=== PATIENT | male | born 1940 | race Caucasian/White ===

== ENCOUNTER → 2017-07-05 13:59 | Outpatient (CLI) | payer MEDICARE, OTHER, SELFPAY ==
[2017-07-05 15:34] LABS: PSA,Total - Annual Screen 4.06 ng/mL (0.00-4.00)
== END ==
PROVIDERS: Family Provider Family Medicine; PCP Family Medicine; Visit Provider Urology
DX: Z12.5 Encounter for screening for malignant neoplasm of prostate (principal)
CPT/HCPCS: 36415; 84153; G0103

== ENCOUNTER → 2017-12-27 11:58 | Outpatient (CLI) | payer MEDICARE, OTHER, SELFPAY ==
[2017-12-27 12:59] LABS: PSA,Total- Diagnostic 4.34 ng/mL (0.0-4.0)
== END ==
PROVIDERS: Family Provider Family Medicine; PCP Family Medicine; Referring Provider Urology; Visit Provider Urology
DX: R97.20 Elevated prostate specific antigen [PSA] (principal)
CPT/HCPCS: 36415; 84153

== ENCOUNTER 2018-01-28 08:06 | Day surgery (SDC) | payer MEDICARE, OTHER, SELFPAY ==
[2018-01-21 10:42] VITALS: BP 108/70; PULSE 76; RESP 16; TEMP 36.5; O2SAT 95; BMI 25.2
--- NOTE | 2018-01-21 10:47 | SDCEKG_ITS ---
Test Reason : Blood Pressure : / mmHG Vent. Rate : 070 BPM Atrial Rate : 070 BPM P-R Int : 000 ms QRS Dur : 088 ms QT Int : 378 ms P-R-T Axes : 000 000 015 degrees QTc Int : 408 ms Atrial fibrillation with premature ventricular or aberrantly conducted complexes Abnormal ECG Confirmed by SARAH SMYTH ([id number]), clinical editor KAYLIE MCCULLOUGH ([id number]) on 01/24/2018 2:15:43 PM Referred By: Maikel Marcum Confirmed By:SARAH SMYTH
[2018-01-21 11:51] LABS: Hematocrit 40.3 % (40-54); Mean Corp Hgb Conc 32.3 g/gl (32-36); Mean Corpuscular Hgb 28.6 pg (27.0-32.0); Mean Corpuscular Volume 88.8 fL (80-94); Mean Platelet Vol. 10.4 fl (6.2-12.0); Platelet Count 148 K/mm3 (150-450); RBC Distribution Width CV 13.4 % (11.6-14.6); Red Blood Count 4.54 M/mm3 (4.6-6.2); White Blood Count 8.4 K/mm3 (4.4-11.0)
[2018-01-21 11:53] LABS: Scan Indicated on CBC? Y/N NO
[2018-01-21 12:19] LABS: Anion Gap 7 (5-15); BUN 17 mg/dL (7-18); BUN/Creat Ratio 16.2 RATIO (10-20); Chloride 101 mmol/L (98-107); Creatinine, Serum 1.05 mg/dL (0.70-1.30); EST Glomerular Filtration Rate 72 mL/min (>60); Est Glom Filt Rate - Afr Amer 88 mL/min (>60); Estimated Creatinine Clearance 61.75 ml/min; Glucose 100 mg/dL (74-106); Potassium 4.4 mmol/L (3.5-5.1); Sodium Level 136 mmol/L (136-145)
[2018-01-21 12:29] LABS: Hemoglobin A1c 6.8 % (4.2-6.3)
[2018-01-28] VITALS (11 sets, daily range): BP systolic 103–136; BP diastolic 56–99; PULSE 66–75; RESP 16–18; TEMP 36.3–36.9; O2SAT 95–100; BMI 25.2
--- NOTE | 2018-01-28 | PROS_PTH ---
PATIENT: HUA ADAN [place] [facility] [id number] AGE/SX: 77/M ROOM: RE01/28/[address]: Dr. Maikel Marcum MD : [id number] BED: DIS: 01/30/2018 SPEC #: [id number] RECD: 01/28/18 14:40 STATUS: BIGG RETeo #: [id number] MANA: 01/28/18 00:[address]: Maikel Marcum DEPT: SURGICAL PATHOLOGY RECD BY: Stevie Mora ENTERED: 01/28/18 14:40 SP TYPE: TURP OTHR DR: Dr. Luis Enrique Reynolds MD Tissues: Prostate, NOS Procedures: Surgery Specimen Level IV HEADER OPERATION: Cysto, TUR, prostate, Olymp[employer] PRE-OP DIAGNOSIS: Benign prostatic hypertrophy TISSUE SUBMITTED: Prostate tissue MICROSCOPIC DIAGNOSIS Prostate tissue, TUR: Benign prostatic hyperplasia, glandular and stromal type. Focal chronic inflammation and granulomatous inflammation. SJ:juanita 01/31/18 MICROSCOPIC DESCRIPTION Slides are reviewed. GROSS DESCRIPTION Received is one container labeled with the patient's name and designated prostate tissue. The specimen consists of multiple irregular fragments of pink-singh, rubbery, soft tissue that in aggregate weigh 22 gm and measure in aggregate 6 x 7 x 3 cm. Community Relations Rep tissue is submitted in 12 cassettes. / MARIE:juanita 01/28/18 TC:5 CPT: 65434
[2018-01-28 09:26] LABS: Prothrombin Time Fingerstick 12.7 SEC (11.9-14.4)
[2018-01-28 10:06] LABS: Bedside Glucose 124 mg/dL (70-110)
[2018-01-28] MEDS: Cefazolin 2 GM in 0.9% Normal Saline 100 ML IV (10:25)
--- NOTE | 2018-01-28 10:33 | DCINST_ITS ---
Discharge Diet: Light diet - advance as tolerated Discharge Activity: Return to Normal Activity Call your doctor if your incision/area has: Continuous Slow Oozing, Sudden Increased Bleeding, Increased Pain/ Swelling, Increased Redness, Foul Smelling Discharge, Swelling at the incision site Instructions: Transurethral Resection of the Prostate (TURP): Home Recovery Allergies/Adverse Reactions: Allergies codeine Allergy (Verified 01/21/18 10:10) BLISTERS Medications to take at Discharge Dutasteride [Avodart] 0.5 mg PO DAILY 01/21/18 Finasteride [Proscar] 5 mg PO DAILY 01/21/18 Glipizide [Glucotrol Xl] 10 mg PO DAILY 01/21/18 Hydrochlorothiazide [Hctz] 25 mg PO DAILY 01/21/18 Lisinopril [Zestril] 5 mg PO DAILY 01/21/18 Metformin HCl [Glucophage] 750 mg PO BIDCM 01/21/18 Simvastatin [Zocor] 40 mg PO QHS 01/21/18 Sitagliptin Phosphate [Januvia] 100 mg PO DAILY 01/21/18 Tamsulosin HCl [Flomax] 0.4 mg PO BID 01/21/18 Primary Care Physician: Luis Enrique Reynolds MD [Primary Care Provider] - Test Results: Test results from this visit will be discussed in further detail at your follow- up appointment, if applicable. Please Follow Up With: Maikel Marcum MD When: in 2 weeks, please call to make an appointment.
--- NOTE | 2018-01-28 11:40 | PCM.OPRPT ---
Report of Operation Date of Procedure: 01/28/18 Pre-Operative Diagnosis: BPH with obstruction Post-Operative Diagnosis: Same Surgery/Procedure Performed:: Transurethral resection of the prostate Description of Surgical Findings:: 77-year-old male who has an enlarged prostate and significant urinary symptoms presents today to the hospital for transurethral resection of the prostate. Patient was taken back to the operating room after smooth induction of general anesthesia he was placed supine on the table and then in dorsal lithotomy position, the penis and testicles are prepped and draped in the usual sterile fashion. Went into the urethra with a 26 Surinamese continuous flow resectoscope using the [employer] resectoscope system when I got inside the prostate had a large bilateral hypertrophy no real median lobe somewhat of a high riding bladder neck and no median lobe. I then started resection in the right lobe of the prostate worked my way back to the room and sphincter, and then started the resection of the left lobe the prostate worked my way back to room and sphincter I then resected all the tissue down to the verumontanum Ellik out all the chips we did a flow test had a nice wide open flow looked back in with a 24 Surinamese noncontinuous flow resectoscope and the sphincter was intact. Then did some very careful resection of the apical tissue and then another flow test had a nice wide open flow all the chips were removed obtained good hemostasis put a catheter and continuous bladder irrigation and the patient anesthetic was reversed taken back to PACU in good condition. Inside the bladder after resection also check a light right and left ureteral orifice which are wide open. Type of Anesthesia:: General Drains: [address] - Admit VTE Documentation VTE Present on Admission: No VTE Mechan Device Prophylaxis: SCD's
--- NOTE | 2018-01-28 11:43 | OP.PCM_ITS ---
Report of Operation Date of Procedure: 01/28/18 Pre-Operative Diagnosis: BPH with obstruction Post-Operative Diagnosis: Same Surgery/Procedure Performed:: Transurethral resection of the prostate Description of Surgical Findings:: 77-year-old male who has an enlarged prostate and significant urinary symptoms presents today to the hospital for transurethral resection of the prostate. Patient was taken back to the operating room after smooth induction of general anesthesia he was placed supine on the table and then in dorsal lithotomy position, the penis and testicles are prepped and draped in the usual sterile fashion. Went into the urethra with a 26 Slovak continuous flow resectoscope using the [employer] resectoscope system when I got inside the prostate had a large bilateral hypertrophy no real median lobe somewhat of a high riding bladder neck and no median lobe. I then started resection in the right lobe of the prostate worked my way back to the room and sphincter, and then started the resection of the left lobe the prostate worked my way back to room and sphincter I then resected all the tissue down to the verumontanum Ellik out all the chips we did a flow test had a nice wide open flow looked back in with a 24 Slovak nonc ontinuous flow resectoscope and the sphincter was intact. Then did some very careful resection of the apical tissue and then another flow test had a nice wide open flow all the chips were removed obtained good hemostasis put a catheter and continuous bladder irrigation and the patient anesthetic was reversed taken back to PACU in good condition. Inside the bladder after resection also check a light right and left ureteral orifice which are wide open. Type of Anesthesia:: General Drains: [address] - Admit VTE Documentation VTE Present on Admission: No VTE Mechan Device Prophylaxis: SCD's
[2018-01-28 12:21] LABS: Bedside Glucose 100 mg/dL (70-110)
[2018-01-28] MEDS: 0.9% Normal Saline 1,000 ML 75 ML IV ×2 (12:41→23:51)
[2018-01-28] MEDS: HYDROcodone Bitartrate/Apap 5/325 Tablet PO ×2 (13:48→22:02)
[2018-01-28] MEDS: Ibuprofen 600 MG Tablet PO (15:30)
[2018-01-28] MEDS: Tamsulosin HCl 0.4 MG Capsule PO (16:02)
[2018-01-28] MEDS: Acetaminophen 325 MG Tablet PO (22:01)
[2018-01-28] MEDS: Atorvastatin Calcium 20 MG Tablet PO (22:02)
[2018-01-28] MEDS: Ciprofloxacin 500 MG Tablet PO (22:02)
[2018-01-28] MEDS: Docusate Sodium 100 MG Capsule PO (22:02)
[2018-01-29] MEDS: Ibuprofen 600 MG Tablet PO ×3 (02:43→17:01)
[2018-01-29 03:20] VITALS: BP 104/65; PULSE 114; RESP 16; TEMP 36.8; O2SAT 97
[2018-01-29] MEDS: HYDROcodone Bitartrate/Apap 5/325 Tablet PO ×3 (06:28→23:07)
[2018-01-29] MEDS: Acetaminophen 325 MG Tablet PO (06:29)
[2018-01-29 07:30] VITALS: BP 143/62; PULSE 74; RESP 18; TEMP 36.1; O2SAT 100
[2018-01-29] MEDS: Tamsulosin HCl 0.4 MG Capsule PO ×2 (08:15→17:00)
[2018-01-29] MEDS: glipiZIDE XL 5 MG Tablet 10 MG PO (08:16)
[2018-01-29] MEDS: hydroCHLOROthiazide 25 MG Tablet PO (08:17)
[2018-01-29] MEDS: Finasteride 5 MG Tablet PO (08:17)
[2018-01-29] MEDS: Pantoprazole Sodium 40 MG Tablet PO (08:17)
[2018-01-29] MEDS: Docusate Sodium 100 MG Capsule PO ×2 (08:17→23:03)
[2018-01-29] MEDS: Ciprofloxacin 500 MG Tablet PO ×2 (08:17→23:03)
[2018-01-29] MEDS: LINAGLIPTIN 5 MG TABLET PO (08:18)
[2018-01-29] MEDS: Lisinopril 5 MG Tablet PO (08:18)
[2018-01-29] MEDS: 0.9% Normal Saline 1,000 ML 75 ML IV (11:44)
--- NOTE | 2018-01-29 11:44 | NURSING ---
LATE ENTRY - 1125 - PT ABLE TO VOID AFTER ALBERTS DC'D X3 - SMALL AMOUNTS 50ML/75ML/50ML - VERY DARK RED WITH NO CLOTS NOTED. PT C/O ALOT OF PAIN/BURNING WITH URINATION - DR SPRINGER NOTIFIED. ORDER TO INSERT 18FR ALBERTS & FLUSH. ALBERTS INSERTED & FLUSHED WITH 50ML NS. PT TOLERATED WELL.
[2018-01-29 12:50] VITALS: BP 119/60; PULSE 79; RESP 18; TEMP 36.4; O2SAT 99
--- NOTE | 2018-01-29 13:02 | CASEMGMT ---
Social Work Telephone call from nursing staff reporting that patient is anxious about discharge to home with spouse today. Reviewed patient chart. Met with patient in room. Patient presenting as anxious as demonstrated by fidgeting with hands and struggle to stay focused on this social media analyst. This social media analyst taking chair and sitting down face to face with patient. This social media analyst exploring patient concerns about returning home. Patient reporting to have limited support and that patient spouse needs help and is unable to manage things on own. Patient concerned about being able to meet patient spouse needs as well as patient needs after discharge. This social media analyst inquiring into what needs patient currently is concerned about. Patient reporting to be concerned about blood that is in catheter. Nursing reporting that blood in catheter is normal after having a TURP procedure completed. This social media analyst normalizing this symptom for patient. Patient voicing understanding and appeared to be surprised that it is normal to have bleeding after a TURP. This social media analyst confirming that patient is able to contact Dr. Marcum's office with any concerns after discharge and that staff with educate patient on how to manage the catheter within the community. Patient also aware that patient will have a follow up appointment with Dr. Marcum in 10 days with hopes to be able to have catheter removed. Patient reporting to be struggling with being out of control and to be unsure about how the healing process will progress. Nursing staff educating to patient how the healing process will look and normal signs and healing process. Patient becoming more confident during conversation and unsure about this social media analyst leaving the room. This social media analyst reinforcing with patient that even though this seems hard patient is showing the ability to be able to work through the healing process. Patient friend then calling patient on phone. This social media analyst leaving room to allow patient to speak with friend. Nursing to let this social media analyst know if there are any further concerns. Support given. Patient plans to return home with spouse on this day and appears to be less anxious as seen through laughing with this social media analyst and able to talk about future/current plans. Nasreen Iverson, COMPUTER TECH, PRODUCTION CONTROLLER
--- NOTE | 2018-01-29 13:27 | CASEMGMT ---
Social Work Nursing reporting that patient is now more anxious again. Nursing also reporting that discharge has been canceled for today due to patient having clotting. Went back to speak with patient again in room. Patient presenting as anxious and reporting what would have happened if this happened at home! Patient pointing to clotting in catheter. This medical social consultant providing active listening and support. Patient aware that discharge has been held at this time. Patient reporting concerns of being able to care for spouse in the home. Patient reporting that patient spouse does have PASSPORT services and has aides through [facility]. Patient reporting that patient spouse is not able to think clearly. This medical social consultant and nurse (who was in room during conversation) observing that maybe patient and patient spouse need more support within the community or possibly should look into transitioning to an assisted living. Patient is unsure about this but open to meeting with a medical social consultant in the community after discharge from hospital. This medical social consultant also broaching topic of having a nurse set up to home into the home after discharge. Patient is agreeable to this and requesting for home health care to be set up through [facility] Patient pleased to be staying another night and aware of possible discharge tomorrow pending medical status. Support given. Telephone call to [facility] on-call nurseRenu. This medical social consultant making referral for skilled nurse and a medical social consultant. Orders placed on patient chart. Dr. Marcum to come in tomorrow and sign orders for home health care. Green sheet placed on patient chart in the event of a weekend discharge with instructions on faxing orders to home health care. Social work to continue to follow as needed. Nasreen Iverson, PICK REMOVER, EMERGING SOLUTIONS EXECUTIVE
--- NOTE | 2018-01-29 13:40 | NURSING ---
PT C/O PAIN @ CATHETER INSERTION SITE, CATHETER NOT FLOWING, FLUSHED WITH 50CC NS - MULTIPLE SMALL CLOTS REMOVED & PT VOICED RELIEF. DR SPRINGER NOTIFIED OF SAME. NEW ORDERS RECEIVED.
--- NOTE | 2018-01-29 17:06 | PCA ---
rn in with pt
[2018-01-29 18:49] VITALS: BP 108/56; PULSE 74; RESP 18; TEMP 36.9; O2SAT 99
[2018-01-29 20:02] VITALS: BP 101/53; PULSE 66; RESP 18; TEMP 37; O2SAT 98
[2018-01-29] MEDS: Atorvastatin Calcium 20 MG Tablet PO (23:03)
[2018-01-30 02:31] VITALS: BP 139/72; PULSE 77; RESP 16; TEMP 36.4; O2SAT 97
[2018-01-30] MEDS: HYDROcodone Bitartrate/Apap 5/325 Tablet PO (07:08)
--- NOTE | 2018-01-30 09:19 | PCM.PN.BLA ---
Progress Note Postop day #2 status post TURP, Villarreal catheter was removed yesterday was not able to urinate normally so Villarreal catheter replaced flush the catheter this morning just a few clots were removed to clear, catheter will be removed today and if he is able to urinate with good control and good volumes he can go home without a catheter. He is instructed not to take his Coumadin to I see him in the office.
[2018-01-30] MEDS: Finasteride 5 MG Tablet PO (09:24)
[2018-01-30] MEDS: Pantoprazole Sodium 40 MG Tablet PO (09:24)
[2018-01-30] MEDS: Ibuprofen 600 MG Tablet PO (09:24)
[2018-01-30] MEDS: glipiZIDE XL 5 MG Tablet 10 MG PO (09:25)
[2018-01-30] MEDS: hydroCHLOROthiazide 25 MG Tablet PO (09:25)
[2018-01-30] MEDS: Lisinopril 5 MG Tablet PO (09:26)
[2018-01-30] MEDS: Docusate Sodium 100 MG Capsule PO (09:26)
[2018-01-30] MEDS: Ciprofloxacin 500 MG Tablet PO (09:26)
[2018-01-30] MEDS: LINAGLIPTIN 5 MG TABLET PO (09:26)
[2018-01-30] MEDS: Tamsulosin HCl 0.4 MG Capsule PO (09:26)
[2018-01-30 09:32] VITALS: BP 105/61; PULSE 65; RESP 18; TEMP 36.6; O2SAT 98
== END 2018-01-30 13:06 | disposition home or self-care (01) ==
LOC: SDC 08:07 → AC 08:07 → MS3 08:27
PROVIDERS: Anesthesiology; Family Provider Family Medicine; PCP Family Medicine; Referring Provider Urology; Visit Provider Urology
PROC: (CPT 52601; principal; 2018-01-28 09:50)
DX: N40.1 Benign prostatic hyperplasia with lower urinary tract symptoms (principal); N41.1 Chronic prostatitis; N13.8 Other obstructive and reflux uropathy; R97.20 Elevated prostate specific antigen [PSA]; R35.1 Nocturia; R35.0 Frequency of micturition; N32.89 Other specified disorders of bladder; I48.91 Unspecified atrial fibrillation; E11.9 Type 2 diabetes mellitus without complications; I10 Essential (primary) hypertension; E78.00 Pure hypercholesterolemia, unspecified; F32.9 Major depressive disorder, single episode, unspecified; Z79.01 Long term (current) use of anticoagulants; Z79.84 Long term (current) use of oral hypoglycemic drugs; Z79.899 Other long term (current) drug therapy; Z86.711 Personal history of pulmonary embolism; Z87.891 Personal history of nicotine dependence; Z95.1 Presence of aortocoronary bypass graft
CPT/HCPCS: 52601; 36416; 80048; 82962; 83036; 85027; 85610; 88305; 93005; J7030; J7120

== ENCOUNTER → 2020-09-30 | Outpatient (CLI) | payer MEDICARE, OTHER, SELFPAY ==
[2018-01-28 13:05] VITALS: BMI 25.2
[2020-09-30 17:47] LABS: Mucous, Urine 0 SEEN /hpf (<or=2+)
[2020-09-30 18:40] LABS: Color, Urine Amber (Yellow); Glucose, Dipstick Normal (Normal); Ketone-Dipstick 5 mg/dl (Negative); Leukocyte Esterase-Dipstick 100 /ul (Negative); Nitrite-Dipstick Positive (Negative); Occult Blood-Urine 250 /ul (Negative); Protein-Dipstick 100 mg/dl (Negative); Specific Gravity, Urine 1.025 (1.002-1.030); Urine Clarity Cloudy (Clear); Urine Urobilinogen 1 mg/dl (Normal)
[2020-09-30 19:04] LABS: Urine Bilirubin Dipstick 3 mg/dL (Negative)
[2020-09-30 19:17] LABS: Red Blood Cells-Urine > 100 SEEN /hpf (0-5)
[2020-09-30 19:20] LABS: Amorphous Sediment 1+; Bacteria 2+ /hpf (None Seen); Squamous Epithelial Cells - UA 0-5 SEEN /hpf (0-5); White Blood Cells 5-10 SEEN /hpf (0-5)
== END | disposition home or self-care (01) ==
PROVIDERS: PCP Family Medicine
DX: R31.29 Other microscopic hematuria (principal)
CPT/HCPCS: 81001

== ENCOUNTER → 2020-10-10 11:44 | Outpatient (CLI) | payer MEDICARE, OTHER, SELFPAY ==
[2018-01-28 13:05] VITALS: BMI 25.2
[2020-10-10 12:12] LABS: Bacteria 0 SEEN /hpf (None Seen); Mucous, Urine 0 SEEN /hpf (<or=2+)
[2020-10-10 12:37] LABS: Color, Urine Yellow (Yellow); Glucose, Dipstick Normal (Normal); Ketone-Dipstick 15 mg/dl (Negative); Leukocyte Esterase-Dipstick 25 /ul (Negative); Nitrite-Dipstick Negative (Negative); Occult Blood-Urine 250 /ul (Negative); Protein-Dipstick 30 mg/dl (Negative); Specific Gravity, Urine 1.015 (1.002-1.030); Urine Bilirubin Dipstick Negative (Negative); Urine Clarity Sl. Cloudy (Clear); Urine Urobilinogen Normal (Normal); Urine pH 6.5 (5.0 - 8.0)
[2020-10-10 12:45] LABS: Red Blood Cells-Urine > 100 SEEN /hpf (0-5); Squamous Epithelial Cells - UA 0-5 SEEN /hpf (0-5); White Blood Cells 0-5 SEEN /hpf (0-5)
== END ==
PROVIDERS: PCP Family Medicine; Referring Provider Urology; Visit Provider Urology
DX: R31.0 Gross hematuria (principal)
CPT/HCPCS: 81001

== ENCOUNTER → 2020-10-24 13:33 | Outpatient (CLI) | payer MEDICARE, OTHER, SELFPAY ==
[2018-01-28 13:05] VITALS: BMI 25.2
--- NOTE | 2020-10-24 14:02 | CT_ITS ---
STUDY: CT ABDOMEN AND PELVIS WITH AND WITHOUT CONTRAST REASON FOR EXAM: Male, 80 years old. OTHER MICROSCOPIC HEMATURIA RADIATION DOSAGE (If Supplied By Facility): CTDIvol = ( 16.50 ) mGy, DLP = ( 1875.13 ) mGycm TECHNIQUE: Transaxial images were obtained from the dome of the diaphragm to the symphysis pubis without oral contrast. 100ml of isovue 300 was administered. Sagittal and coronal images were reconstructed. Individualized dose optimization techniques were used for this CT. COMPARISON: None. FINDINGS: There is evidence of linear scarring at the lung bases. Coronary artery calcification. Normal liver. There are multiple small gallstones. Normal spleen. There are pancreatic calcifications in the distribution of the ducts consistent with chronic pancreatitis. There is diffuse atrophy of the pancreas. Normal bilateral adrenal glands. Normal right kidney. There is a 3.1 cm x 2.6 cm cyst in the inferior medial aspect of the left kidney. Normal visualized stomach. Normal small intestine. There are multiple colonic diverticula consistent with diverticulosis. The appendix is visualized and appears normal. There is diffuse atherosclerotic calcification of the abdominal aorta and its major visceral branches. There is a fusiform infrarenal abdominal aortic aneurysm with a transverse dimension of 4.3 cm. Mural thrombus is seen within the aorta. Normal inferior vena cava. Normal retroperitoneum. Normal urinary bladder. There is enlargement of the prostate gland. It measures 5 cm x 5.6 cm. This causes indentation at the bladder base. I suspect a 1.5 cm x 1.1 cm hyperdense nodule in the posterior aspect of the right side of the prostate. Normal abdominal wall. There are diffuse degenerative changes of the visualized lumbar spine. CT/CT Abd/Pelvis W/WO Contrast IMPRESSION: Prostatic enlargement with indentation on the base. There is evidence of a 1.5 cm x 1 cm hyperdense nodule in the posterior aspect of the right side of the prostate. Left renal cyst. Small stable gallstones. Diffuse atrophy of the pancreas with diffuse pancreatic calcifications. Infrarenal abdominal aortic aneurysm. Electronically Signed: Amadeo Escalona MD at 20:07 EDT , Service support ,
== END ==
PROVIDERS: PCP Family Medicine; Referring Provider Nurse Practitioner Adult Health; Visit Provider Nurse Practitioner Adult Health
DX: R31.29 Other microscopic hematuria (principal)
CPT/HCPCS: 74178; Q9967

== ENCOUNTER → 2020-11-05 11:03 | Outpatient (CLI) | payer MEDICARE, OTHER, SELFPAY ==
--- NOTE | 2020-11-05 11:18 | EKG12_ITS ---
Test Reason : PREOP Blood Pressure : / mmHG Vent. Rate : 076 BPM Atrial Rate : 277 BPM P-R Int : 000 ms QRS Dur : 096 ms QT Int : 378 ms P-R-T Axes : 000 035 041 degrees QTc Int : 425 ms Atrial fibrillation with premature ventricular or aberrantly conducted complexes Consider Precordial Lead Misplacement (V1-V2) Consider Repeat ECG Confirmed by INES CARSON, MARSHALL ([id number]), food expeditor RUBIO LOZANO ([id number]) on 11/06/2020 8:52:30 AM Referred By: GIAN Confirmed By:MARSHALL CHACON MD
[2020-11-05 11:29] LABS: Hemoglobin 12.4 g/dL (13.0-16.5); Mean Corp Hgb Conc 31.8 g/dL (32-36); Mean Corpuscular Hgb 28.6 pg (27.0-32.0); Mean Corpuscular Volume 90.1 fL (80-94); Mean Platelet Vol. 10.6 fl (6.2-12.0); Platelet Count 127 K/mm3 (150-450); RBC Distribution Width CV 13.6 % (11.6-14.6); RBC Distribution Width SD 45.1 fl (35.1-43.9); Red Blood Count 4.33 M/mm3 (4.6-6.2)
[2020-11-05 11:50] LABS: Anion Gap 4 (5-15); BUN 29 mg/dL (7-18); BUN/Creat Ratio 24.8 RATIO (10-20); Calcium,Total 8.8 mg/dL (8.5-10.1); Chloride 105 mmol/L (98-107); Creatinine, Serum 1.17 mg/dL (0.70-1.30); EST Glomerular Filtration Rate 64 mL/min (>60); Est Glom Filt Rate - Afr Amer 77 mL/min (>60); Glucose 107 mg/dL (74-106); Potassium 4.5 mmol/L (3.5-5.1); Sodium Level 136 mmol/L (136-145)
== END ==
PROVIDERS: PCP Family Medicine; Visit Provider Urology
DX: Z01.810 Encounter for preprocedural cardiovascular examination (principal); I10 Essential (primary) hypertension
CPT/HCPCS: 36415; 80048; 85027; 93005

== ENCOUNTER → 2022-01-15 | Outpatient (CLI) | payer MEDICARE, OTHER, SELFPAY ==
[2022-01-15 15:12] LABS: Hematocrit 40.2 % (40-54); Mean Corp Hgb Conc 32.3 g/dL (32-36); Mean Corpuscular Hgb 29.2 pg (27.0-32.0); Mean Corpuscular Volume 90.3 fL (80-94); Mean Platelet Vol. 10.4 fl (6.2-12.0); Platelet Count 137 K/mm3 (150-450); RBC Distribution Width CV 13.7 % (11.6-14.6); RBC Distribution Width SD 45.5 fl (35.1-43.9); Red Blood Count 4.45 M/mm3 (4.6-6.2); White Blood Count 5.7 K/mm3 (4.4-11.0)
[2022-01-15 15:44] LABS: Anion Gap 4 (5-15); BUN 33 mg/dL (7-18); Calcium,Total 9.4 mg/dL (8.5-10.1); Chloride 105 mmol/L (98-107); Creatinine, Serum 1.22 mg/dL (0.70-1.30); EST Glomerular Filtration Rate 60 mL/min (>60); Est Glom Filt Rate - Afr Amer 73 mL/min (>60); Glucose 93 mg/dL (74-106); PSA,Total- Diagnostic 7.27 ng/mL (0.0-4.0); Potassium 4.9 mmol/L (3.5-5.1); Sodium Level 137 mmol/L (136-145)
== END | disposition home or self-care (01) ==
LOC: LAB 14:29
PROVIDERS: PCP Family Medicine; Visit Provider Urology
DX: R97.20 Elevated prostate specific antigen [PSA] (principal)
CPT/HCPCS: 36415; 80048; 84153; 85027

== ENCOUNTER 2022-04-09 18:59 | Emergency (ER) | payer MEDICARE, OTHER, SELFPAY ==
[2022-04-09 19:00] VITALS: BP 173/114; PULSE 100; RESP 19; TEMP 35.6; O2SAT 98; BMI 22.4
--- NOTE | 2022-04-09 19:07 | NURSING ---
for ride home, call at [phone]
[2022-04-09] MEDS: oxyCODONE 5 MG Tablet PO (19:45)
--- NOTE | 2022-04-09 19:46 | EDS_ITS ---
HPI History of Present Illness Chief Complaint: Male Pain/Injury Informant: patient and EMS Narrative Narrative: Brought by EMS from home after severe groin pain after getting out of shower and wiping his feet. Bilateral inguinal hernia repair [address] Bates in [place]. States nausea due to pain. Previous back fracture 10 years ago he wears a brace he is on hydrocodone. He took it at 5:00 with no relief. Sent home with his spouse who he takes care of. History of CABG x4 vessels. Prior similar symptoms: Yes PFSH PFSH Home Medications dutasteride 0.5 mg capsule (Avodart) 0.5 mg PO DAILY BLADDER 01/21/18 [History Last Taken Unknown] finasteride 5 mg tablet 5 mg PO DAILY PROSTATE 01/21/18 [History Last Taken Unknown] glipizide 10 mg tablet, extended release 24 hr (Glucotrol XL) 10 mg PO DAILY DIABETES 01/21/18 [History Last Taken Unknown] hydrochlorothiazide 25 mg tablet 25 mg PO DAILY BP 01/21/18 [History Last Taken Unknown] lisinopril 5 mg tablet 5 mg PO DAILY BP 01/21/18 [History Last Taken 01/28/18 06:00] metformin 500 mg tablet 750 mg PO BIDCM DIABETES 01/21/18 [History Last Taken Unknown] simvastatin 40 mg tablet 40 mg PO QHS CHOLESTEROL 01/21/18 [History Last Taken Unknown] sitagliptin phosphate 100 mg tablet (Januvia) 100 mg PO DAILY DAIBETES 01/21/18 [History Last Taken Unknown] tamsulosin 0.4 mg capsule (Flomax) 0.4 mg PO BID BLADDER 01/21/18 [History Last Taken Unknown] ciprofloxacin HCl 500 mg tablet 500 mg PO BID ##14 01/28/18 [Rx Last Taken Unknown] hydrocodone-acetaminophen 5-325mg 5mg-325mg 1 - 2 tab PO TID PRN PRN CHRONIC BACK PAIN 01/28/18 [History Last Taken Unknown] phenazopyridine 100 mg tablet 100 mg PO TID ##20 01/30/18 [Rx Last Taken Unknown] Allergy/AdvReac Type Severity Reaction Status Date / Time codeine Allergy BLISTERS Verified 04/09/22 19:03 Social History Smoking Status: Former smoker ROS ROS ED Constitutional Constitutional ED: Denies chills, fever(s) or sweats Eyes Eyes: Denies change in vision ENT ENT ED: Denies dysphagia or sore throat Cardiovascular Cardiovascular: Denies chest pain, leg edema, palpitations or racing heartbeat Respiratory/Chest Respiratory/Chest: Denies cough, dyspnea or dyspnea on exertion Gastrointestinal Gastrointestinal: Reports abdominal pain and nausea; Denies diarrhea or vomiting Genitourinary Genitourinary ED: Denies dysuria, hematuria or urinary frequency Musculoskeletal Musculoskeletal: Denies back pain, extremity pain or neck pain Integumentary Denies rash or wounds Neurologic Neurologic: Denies headache(s), paresthesias or weakness EXAM Physical Exam Const Vital Signs: 04/09/22 19:00 Temperature 96.0 F L Temperature Source Temporal Pulse Rate 100 Respiratory Rate 19 H Blood Pressure 173/114 H Blood Pressure Mean 133 Pulse Ox 98 Oxygen Delivery Method Room Air Positive well nourished and well developed General Appearance ED: well developed and NAD HEENT Reports moist mucous membranes normocephalic and atraumatic Eyes PERRL, EOMs intact bilaterally and conjunctivae normal General Eye ED: Yes normal appearance of both eyes Neck no lymphadenopathy and supple General: Negative for tenderness Chest Wall Chest: Negative for tenderness Resp normal respiratory effort and normal air movement Effort and Inspection: symmetric chest movement; Negative for respiratory distress Cardio regular rate, regular rhythm and no murmurs Peripheral Pulses: pulses 2+ throughout GI normal to inspection, nondistended, normoactive bowel sounds and non-tender Palpation: Negative for guarding or rebound tenderness present Narrative: Laying down noted bulging on the proximal aspect of the inguinal wound. Bilateral inguinal healed scars. Tender to palpation. Back/Spine no CVA tenderness and no thoracic nor lumbar tenderness Extremity normal to inspection General Extremety ED: Negative for edema or tenderness General Extremity: Negative for edema Neuro oriented x3 and no sensory deficits noted Sensorium / Orientation: awake and alert Skin no rashes or lesions noted and no wounds MDM MDM MDM Narrative Medical decision making narrative: Patient uncomfortable with exam concerns for indirect recurrent hernia right side. Differential strangulated versus incarcerated hernia. However with symptoms within 2 hours less likely incarcerated. Likely strangulation due to pain. He is placed in Trendelenburg, gentle pressure was placed as able to reduce this. He will be monitored. He is given oxycodone. Patient monitored multiple reevaluation improved. He was ambulated with no recurrent symptoms. He states his surgeon likely retired. Therefore is given follow-up with on-call surgeon for outpatient evaluation and intervention. Strict return precaution discussed. All questions were answered. Discharge Plan Triage Chief Complaint: Male Pain/Injury ED Provider: Nando Momin Dx/Rx/DC Orders Clinical Impression: Reducible right inguinal hernia, Type II diabetes mellitus, Severe right groin pain Instructions: ED Hernia (Adult) Prescriptions: No Action metformin 500 MG tablet 750 mg PO BIDCM glipizide [Glucotrol XL] 10 MG Tab.Er.24 10 mg PO DAILY simvastatin 40 MG tablet 40 mg PO QHS tamsulosin [Flomax] 0.4 MG capsule 0.4 mg PO BID lisinopril 5 MG tablet 5 mg PO DAILY hydrochlorothiazide 25 MG tablet 25 mg PO DAILY finasteride 5 MG tablet 5 mg PO DAILY dutasteride [Avodart] 0.5 MG capsule 0.5 mg PO DAILY sitagliptin phosphate [Januvia] 100 MG tablet 100 mg PO DAILY ciprofloxacin HCl 500 MG tablet 500 mg PO BID Qty: 14 0RF hydrocodone-acetaminophen 1 TABLET tablet 1 - 2 tab PO TID PRN PRN (Reason: CHRONIC BACK PAIN) Rx Instructions: CHRONIC BACK PAIN phenazopyridine 100 MG tablet 100 mg PO TID Qty: 20 0RF Primary Care Provider: Luis Enrique Reynolds Referrals: Luis Enrique Reynolds MD [Primary Care Provider] - Meagan Worrell MD [Med Staff - Active Staff] - 1-2 Weeks Activity Restrictions/Additional Instructions: Recurrent right inguinal hernia. This was reduced in the ED. No heavy lifting. Follow-up with surgery as an outpatient. Return if any acute worsening symptoms. Disposition Disposition: Home, Self Care Discharge Date/Time: 04/09/22 22:00
== END 2022-04-09 22:00 | disposition home or self-care (01) ==
PROVIDERS: Emergency Provider Emergency Medicine; PCP Family Medicine; Visit Provider Emergency Medicine
DX: K40.90 Unilateral inguinal hernia, without obstruction or gangrene, not specified as recurrent (principal); E11.9 Type 2 diabetes mellitus without complications; Z87.891 Personal history of nicotine dependence
CPT/HCPCS: 99284

== ENCOUNTER → 2022-07-14 | Outpatient (CLI) | payer MEDICARE, OTHER, SELFPAY ==
[2022-07-14 13:28] LABS: PSA,Total - Annual Screen 7.88 ng/mL (0.00-4.00)
== END | disposition home or self-care (01) ==
LOC: LAB 11:40
PROVIDERS: PCP Family Medicine; Referring Provider Urology; Visit Provider Urology
DX: Z12.5 Encounter for screening for malignant neoplasm of prostate (principal)
CPT/HCPCS: 36415; 84153; G0103

== ENCOUNTER → 2023-07-22 | Outpatient (CLI) | payer MEDICARE, OTHER, SELFPAY | END | disposition home or self-care (01) | LOC: LAB 14:35 | PROVIDERS: PCP Family Medicine; Referring Provider Urology; Visit Provider Urology | DX: R97.20 Elevated prostate specific antigen [PSA] (principal) | CPT/HCPCS: 36415; 84153 ==

== ENCOUNTER → 2023-09-02 | Outpatient (CLI) | payer MEDICARE, OTHER, SELFPAY ==
--- NOTE | 2023-09-02 13:00 | PROSBIL_PTH ---
PATIENT: HUA ADAN LOC: [facility] U#:[id number] AGE/SX: 83/M ROOM: RE09/02/[address]: Dr. Maikel Marcum MD : 1940 BED: DIS: 09/02/2023 SPEC #: [id number] RECD: 09/03/23 07:16 STATUS: BIGG RETeo #: [id number] MANA: 09/02/23 13:[address]: Maikel Marcum DEPT: SURGICAL PATHOLOGY RECD BY: Grace Sy ENTERED: 09/03/23 07:18 SP TYPE: PROST BX ENOC DR: Dr. Luis Enrique Reynolds MD Tissues: A - PROSTATE RIGHT B - PROSTATE RIGHT C - PROSTATE RIGHT D - PROSTATE LEFT E - PROSTATE LEFT Procedures: PROSTATE BX HEADER OPERATION: Prostate biopsy PRE-OP DIAGNOSIS: Elevated PSA TISSUE SUBMITTED: A - Right apex, B - Right mid, C - Right base, D - Left mid, E - Left base MICROSCOPIC DIAGNOSIS A. Right prostate, apex, core biopsy: Prostatic adenocarcinoma. [place] grade: 5+3 = 8 Number of cores involved: 1/1 Proportion of tissue involved: ~90% Perineural invasion: Present, focal Greatest tumor length: 0.9 cm B. Right prostate, mid, core biopsy: Prostatic adenocarcinoma. Mike grade: 3+4 = 7 Number of cores involved: 1/1 Proportion of tissue involved: ~90% Perineural invasion: Suspected Greatest tumor length: 0.8 cm C. Right prostate, base, core biopsy: Prostatic adenocarcinoma. [place] grade: 3+4 = 7 Number of cores involved: 1/1 Proportion of tissue involved: ~90% Perineural invasion: not identified. Greatest tumor length: 0.8 cm D. Left prostate, mid, core biopsy: Prostatic tissue, negative for malignancy. Focal mild chronic inflammation. E. Left prostate, base, core biopsy: Prostatic tissue, negative for malignancy. Focal atrophy. MARIE/ 09/06/2023 MICROSCOPIC DESCRIPTION Slides are reviewed. GROSS DESCRIPTION A - Received is one container designated prostate, right apex. The specimen consists of one elongated fragments of light singh-white soft tissue measuring 1.5 cm in length and 0.1 cm in diameter. The specimen is totally submitted in one cassette. B - Received is one container designated prostate, right mid. The specimen consists of one elongated fragments of light singh-white soft tissue measuring 1.5 cm in length and 0.1 cm in diameter. The specimen is totally submitted in one cassette. C - Received is one container designated prostate, right base. The specimen consists of one elongated fragments of light singh-white soft tissue measuring 1.5 cm in length and 0.1 cm in diameter. The specimen is totally submitted in one cassette. D - Received is one container designated prostate, left mid. The specimen consists of one elongated fragments of light singh-white soft tissue measuring 1.0 cm in length and 0.1 cm in diameter. The specimen is totally submitted in one cassette. E - Received is one container designated prostate, left base. The specimen consists of one elongated fragments of light singh-white soft tissue measuring 1.0 cm in length and 0.1 cm in diameter. The specimen is totally submitted in one cassette. JOVANA/ 09/03/2023 TC:0 CPT: G0146
== END | disposition home or self-care (01) ==
LOC: LABSPEC 15:48
PROVIDERS: PCP Family Medicine; Referring Provider Urology; Visit Provider Urology
DX: R97.20 Elevated prostate specific antigen [PSA] (principal)
CPT/HCPCS: 88305; G0416

== ENCOUNTER → 2023-09-24 | Outpatient (CLI) | payer MEDICARE, OTHER, SELFPAY ==
--- NOTE | 2023-09-24 10:17 | NM_ITS ---
CLINICAL: 83-year-old male with history of primary prostate carcinoma. WHOLE BODY 99m Tc MDP RADIONUCLIDE BONE SCINTIGRAPHY COMPARISON: None available FINDINGS: Following the intravenous administration of 5.4 mCi of 99m Tc MDP, whole body bone images reveal: 1. Increased radiotracer is defined in the left anterior fourth and sixth ribs at the costochondral junction, linear in presentation defined in the longitudinal plane. 2. Facilitated radiopharmaceutical is visualized in the right hemipelvis to include the iliac wing, the right iliac crest, the acetabulum and posterior ischium. 3. Enhanced tracer uptake is noted in the acromioclavicular compartments of both shoulders, the posterior compartment of the left ankle, the first thoracic vertebra posteriorly on the right. 4. The remaining skeletal structures are scintigraphically unremarkable with normal-appearing renal images and urinary bladder activity identified. NM/Bone Scan Whole Body IMPRESSION: 1. The increase in radiopharmaceutical concentration defined in the left anterior ribs is commensurate with trauma-fracture. Plain film radiography correlation may be of benefit. 2. Accentuated tracer identified throughout the right hemipelvis may represent changes secondary to metabolic bone disease, Paget''s disease. Plain film x-ray correlation is recommended. 3. 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 4. There is no definitive scintigraphic evidence of diffuse axial multifocal skeletal metastatic disease. Electronically Signed: Nabor Lomeli DO at 14:37 EDT ,
== END | disposition home or self-care (01) ==
LOC: NM 10:13
PROVIDERS: PCP Family Medicine; Referring Provider Urology; Visit Provider Urology
DX: C61 Malignant neoplasm of prostate (principal); N40.3 Nodular prostate with lower urinary tract symptoms; R97.20 Elevated prostate specific antigen [PSA]; R10.84 Generalized abdominal pain
CPT/HCPCS: 78306; A9503

== ENCOUNTER → 2023-09-28 | Outpatient (CLI) | payer MEDICARE, OTHER, SELFPAY ==
--- NOTE | 2023-09-28 17:40 | CT_ITS ---
STUDY: CT ABDOMEN AND PELVIS WITH CONTRAST REASON FOR EXAM: Male, 83 years old. PROSTATE CANCER RADIATION DOSAGE (If Supplied By Facility): CTDIvol = ( 20.46 ) mGy, DLP = ( 981.56 ) mGycm TECHNIQUE: Transaxial images were obtained from the dome of the diaphragm to the symphysis pubis with oral contrast. Oral and amp; IV Readi-CAT and amp; 100mL Isovue-370 was administered. Sagittal and coronal images were reconstructed. Individualized dose optimization techniques were used for this CT. COMPARISON: Comparison is made with prior study October 24, 2020. FINDINGS: Minimal linear scarring at the lung bases. Coronary artery calcification. Normal liver. There are multiple small gallstones in the gallbladder lumen. Diffuse gallbladder wall thickening. Minimal degree of pericholecystic fluid. Clinical correlation recommended. Normal spleen. There are pancreatic calcifications in the distribution of the ducts consistent with chronic pancreatitis. Diffuse pancreatic atrophy. Normal bilateral adrenal glands. Normal right kidney. There is a 2.9 cm cyst in the inferior medial portion of the left kidney. Normal visualized stomach. Normal small intestine. There are multiple colonic diverticula consistent with diverticulosis. The appendix is visualized and appears normal. There is diffuse atherosclerotic calcification of the abdominal aorta. 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 Mural clot is seen. There is also evidence of a fusiform infrarenal abdominal aortic aneurysm with a transverse dimension of 3.4 cm. Mural thrombus is seen. Normal inferior vena cava. Normal retroperitoneum. Normal urinary bladder. There is heterogeneous enlargement of the prostate. The prostate measures 4.6 cm x 4.9 cm. There is heterogeneous calcification along its posterior lateral portion. Normal abdominal wall. There are diffuse degenerative changes of the visualized lumbar spine. CT/Abdomen/Pelvis WITH Contrast IMPRESSION: Heterogeneous enlargement of the prostate with eccentric calcification. Multiple small gallstones with gallbladder wall thickening and small amount of pericholecystic fluid. Abdominal aortic aneurysms. Pancreatic atrophy and diffuse pancreatic calcifications. Electronically Signed: Amadeo Escalona MD at 11:16 EDT ,
[2023-09-28 18:07] LABS: CREATININE FINGERSTICK 1.2 mg/dL (0.70-1.30); EGFR FINGERSTICK > 60.0000 mL/min (>60)
== END | disposition home or self-care (01) ==
LOC: CT 17:38
PROVIDERS: PCP Family Medicine; Referring Provider Urology; Visit Provider Urology
DX: Z01.812 Encounter for preprocedural laboratory examination (principal); C61 Malignant neoplasm of prostate; N40.3 Nodular prostate with lower urinary tract symptoms; R97.20 Elevated prostate specific antigen [PSA]; R10.84 Generalized abdominal pain
CPT/HCPCS: 74177; Q9967

== ENCOUNTER 2023-10-02 17:05 | Emergency (ER) | payer MEDICARE, OTHER, SELFPAY ==
[2023-10-02 17:07] VITALS: BP 137/94; PULSE 110; RESP 18; TEMP 36.4; O2SAT 98; BMI 22.4
--- NOTE | 2023-10-02 17:31 | EX.ED.DYSGE1 ---
HPI <JESUSITA Cabezas - Last Filed: 10/02/23 19:29> History of Present Illness Chief Complaint: Sore Throat Narrative Narrative: 83-year-old male with PMH of HTN, HLD, DM2 gradually developed a sore throat throughout the day. He states he was around his friend who has COVID. He denies fever, chills, congestion, cough, chest pain or shortness of breath. PFSH <JESUSITA Cabezas - Last Filed: 10/02/23 19:29> PFSH Home Medications ?Medication ?Instructions ?Recorded ?Last Taken ?Type dutasteride 0.5 mg capsule 0.5 mg PO DAILY BLADDER 01/21/18 Unknown History (Avodart) finasteride 5 mg tablet 5 mg PO DAILY PROSTATE 01/21/18 Unknown History glipizide 10 mg tablet, extended 10 mg PO DAILY DIABETES 01/21/18 Unknown History release 24 hr (Glucotrol XL) hydrochlorothiazide 25 mg tablet 25 mg PO DAILY BP 01/21/18 Unknown History lisinopril 5 mg tablet 5 mg PO DAILY BP 01/21/18 01/28/18 06:00 History metformin 500 mg tablet 750 mg PO BIDCM DIABETES 01/21/18 Unknown History simvastatin 40 mg tablet 40 mg PO QHS CHOLESTEROL 01/21/18 Unknown History sitagliptin phosphate 100 mg 100 mg PO DAILY DAIBETES 01/21/18 Unknown History tablet (Januvia) tamsulosin 0.4 mg capsule (Flomax) 0.4 mg PO BID BLADDER 01/21/18 Unknown History ciprofloxacin HCl 500 mg tablet 500 mg PO BID ##14 01/28/18 Unknown Rx hydrocodone-acetaminophen 5-325mg 1 - 2 tab PO TID PRN PRN CHRONIC 01/28/18 Unknown History 5mg-325mg BACK PAIN phenazopyridine 100 mg tablet 100 mg PO TID ##20 01/30/18 Unknown Rx carbamide peroxide 6.5 % ear drops 5 drp LEFT EAR DAILY 4 days #15 mL 10/02/23 Unknown Rx (Debrox) Allergy/AdvReac Type Severity Reaction Status Date / Time codeine Allergy BLISTERS Verified 04/09/22 19:03 Social History Smoking Status: Former smoker ROS <JESUSITA Cabezas - Last Filed: 10/02/23 19:29> ROS ED ROS Narrative Constitutional: Negative for fever, chills, malaise. ENT: Positive for sore throat. CVS: Negative for chest pain. Respiratory: Negative for shortness of breath, cough. GI: Negative for abdominal pain, nausea, vomiting, diarrhea. EXAM <JESUSITA Cabezas - Last Filed: 10/02/23 19:29> Physical Exam Narrative Exam Narrative: CONST: Patient sitting in no acute distress. EYES: Normal inspection. ENT: Moist mucous membranes and normal posterior oropharynx, no trismus or tongue elevation, sublingual space is soft. Nares clear. Right TM normal, left complete cerumen impaction. NECK: Normal inspection. No lymphadenopathy or tenderness, trachea midline. RESP: No respiratory distress, CTAB. CVS: Regular rate and rhythm, no murmur, no gallop. SKIN: Color normal, no rash, warm, dry, intact. EXTREMITIES: Normal appearance, no pedal edema. NEURO: Alert and answering questions appropriately. Very hard of hearing. PSYCH: Normal affect. Const Vital Signs: 10/02/23 17:07 10/02/23 19:29 Temperature 97.6 F L 97.6 F L Temperature Source Temporal Pulse Rate 110 H 93 Respiratory Rate 18 16 Blood Pressure 137/94 H 132/86 H Blood Pressure Mean 108 101 Pulse Ox 98 94 Oxygen Delivery Method Room Air <Fito Benites MD - Last Filed: 10/02/23 20:10> Physical Exam Const Vital Signs: 10/02/23 17:07 10/02/23 19:29 Temperature 97.6 F L 97.6 F L Temperature Source Temporal Pulse Rate 110 H 93 Respiratory Rate 18 16 Blood Pressure 137/94 H 132/86 H Blood Pressure Mean 108 101 Pulse Ox 98 94 Oxygen Delivery Method Room Air MDM <JESUSITA Cabezas - Last Filed: 10/02/23 19:29> MDM MDM Narrative Medical decision making narrative: Patient has an acute sore throat x 1 day after COVID exposure. He has no other symptoms. He appears well and nontoxic. He is mildly tachycardic in triage at 110 with otherwise normal vital signs. His posterior oropharynx looks normal with no signs of strep pharyngitis or peritonsillar abscess. He incidentally has a left cerumen impaction and will be given Debrox drops. He has no respiratory symptoms and has normal cardiopulmonary exam. Viral swab is positive for COVID-19. I discussed symptomatic treatment with fluids and Tylenol and return precautions. He was discharged in stable condition. <Fito Benites MD - Last Filed: 10/02/23 20:10> [facility] MDM Narrative Medical decision making narrative: Patient has an acute sore throat x 1 day after COVID exposure. He has no other symptoms. He appears well and nontoxic. He is mildly tachycardic in triage at 110 with otherwise normal vital signs. His posterior oropharynx looks normal with no signs of strep pharyngitis or peritonsillar abscess. He incidentally has a left cerumen impaction and will be given Debrox drops. He has no respiratory symptoms and has normal cardiopulmonary exam. Viral swab is positive for COVID-19. I discussed symptomatic treatment with fluids and Tylenol and return precautions. He was discharged in stable condition. Dr. Benites: I have personally performed a face to face assessment of the patient and have reviewed the LILLIA[place] Note. I performed a substantive portion of the visit including all aspects of the following. My hou findings include: History is sore throat x 1 day, exposure to COVID from friend. Exam is afebrile. Vital signs noted. Nontoxic-appearing. Airway patent. No drooling or trismus. No pharyngeal erythema. Positive hard of hearing. Medical Decision Making: Check COVID, influenza, and RSV swab. I reviewed the respiratory swab and he is positive for COVID. I do not feel Paxlovid is indicated. Symptomatic treatment. Oral fluids. Follow-up primary care. Discharge. Other additions or changes: [None] Discharge Plan Triage Chief Complaint: Sore Throat ED Midlevel Provider: Laquita Lundberg ED Provider: Fito Benites Dx/Rx/DC Orders Clinical Impression: COVID-19, Acute sore throat, Impacted cerumen of left ear Instructions: Coronavirus Disease 2019 (COVID-19): Caring for Yourself or Others Prescriptions: New Debrox 6.5 % drops 5 drp LEFT EAR DAILY 4 Days Qty: 15 0RF No Action metformin 500 MG tablet 750 mg PO BIDCM glipizide [Glucotrol XL] 10 MG tablet extended release 24hr 10 mg PO DAILY simvastatin 40 MG tablet 40 mg PO QHS tamsulosin [Flomax] 0.4 MG capsule 0.4 mg PO BID lisinopril 5 MG tablet 5 mg PO DAILY hydrochlorothiazide 25 MG tablet 25 mg PO DAILY finasteride 5 MG tablet 5 mg PO DAILY dutasteride [Avodart] 0.5 MG capsule 0.5 mg PO DAILY sitagliptin phosphate [Januvia] 100 MG tablet 100 mg PO DAILY ciprofloxacin HCl 500 MG tablet 500 mg PO BID Qty: 14 0RF hydrocodone-acetaminophen 1 TABLET tablet 1 - 2 tab PO TID PRN PRN (Reason: CHRONIC BACK PAIN) Rx Instructions: CHRONIC BACK PAIN phenazopyridine 100 MG tablet 100 mg PO TID Qty: 20 0RF Primary Care Provider: Luis Enrique Reynolds Referrals: Luis Enrique Reynolds MD [Primary Care Provider] - Activity Restrictions/Additional Instructions: You tested positive for COVID. Rest, drink plenty of fluids, take Tylenol as needed for your sore throat. If you develop worsening symptoms such as difficulty breathing come back for reevaluation. Print Language: Hebrew Disposition Disposition: Home, Self Care Discharge Date/Time: 10/02/23 19:34
[2023-10-02 19:29] VITALS: BP 132/86; PULSE 93; RESP 16; TEMP 36.4; O2SAT 94
== END 2023-10-02 19:34 | disposition home or self-care (01) ==
PROVIDERS: Emergency Provider Emergency Medicine; PCP Family Medicine; Visit Provider Emergency Medicine
DX: U07.1 COVID-19 (principal); E11.9 Type 2 diabetes mellitus without complications; H61.22 Impacted cerumen, left ear; I10 Essential (primary) hypertension; E78.5 Hyperlipidemia, unspecified; Z79.84 Long term (current) use of oral hypoglycemic drugs; Z79.899 Other long term (current) drug therapy; Z87.891 Personal history of nicotine dependence
CPT/HCPCS: 87631; 99282

== ENCOUNTER → 2023-10-11 | Outpatient (CLI) | payer MEDICARE, OTHER, SELFPAY ==
--- NOTE | 2023-10-11 09:00 | RAD_ITS ---
INDICATION: ADNORMAL BONE SCAN EXAMINATION/TECHNIQUE: X-RAY - XR Pelvis 1 or 2 Views COMPARISON: Prior study dated: 09/28/2023 . Bone scan 712 24. FINDINGS: PELVIC BONES: No displaced fracture, destructive or sclerotic lesions. Note that overlapping bowel shadows may however obscure fine detail. Sacroiliac joints are unremarkable. No widening of the pubic symphysis. There is mildly increased trabeculation and portions of the right pelvis, particularly along the acetabulum and pubic rami. HIPS: Hips are appropriately aligned. Joint space narrowing of both hips with sclerosis and osteophytes. No displaced fracture seen in this frontal view. SOFT TISSUES: No soft tissue swelling or gas. Vascular calcifications are seen. RAD/Pelvis 1 or 2 Views IMPRESSION: No evidence of displaced pelvic or hip fracture. Moderate degenerative changes of both hips. Increased trabeculation and portions of the right hemipelvis could be associated with Paget''s disease. Electronically Signed: Bogdan Pal MD at 7:08 EDT ,
== END | disposition home or self-care (01) ==
LOC: RAD 08:55
PROVIDERS: PCP Family Medicine; Referring Provider Urology; Visit Provider Urology
DX: C61 Malignant neoplasm of prostate (principal); R94.8 Abnormal results of function studies of other organs and systems
CPT/HCPCS: 72170

== ENCOUNTER 2023-11-28 16:46 | Emergency (ER) | payer MEDICARE, OTHER, SELFPAY ==
[2023-11-28 16:47] VITALS: BP 124/78; PULSE 88; RESP 15; TEMP 36.8; O2SAT 100; BMI 22.9
--- NOTE | 2023-11-28 17:00 | CT_ITS ---
EXAM: CT ABDOMEN AND PELVIS WITH INTRAVENOUS CONTRAST CLINICAL INDICATION: abdomin al pain TECHNIQUE: Helically acquired images were obtained of the abdomen and pelvis with intravenous contrast. This CT exam was performed using one or more of the following dose reduction techniques: automated exposure control, adjustment of the mA and/or kV according to patient size, and/or use of iterative reconstruction technique. CONTRAST: IV 100mL Isovue-370 COMPARISON: CT abdomen and pelvis, 09/28/2023 and PET/CT, 11/09/2023. FINDINGS: LOWER THORAX: Likely mild atelectasis in the bibasilar lungs. Coronary artery calcifications and/or stents. Status post CABG. Cardiomegaly. No pericardial effusion. ABDOMEN: LIVER: Patchy nonmass-like areas of hypoattenuation within the liver are nonspecific, similar to the prior examination perhaps related to perfusional variants. GALLBLADDER AND BILE DUCTS: Cholelithiasis and pericholecystic edema and/or gallbladder wall thickening suggesting cholecystitis. No intra- or extrahepatic biliary ductal dilation. PANCREAS: No significant abnormality. No focal cystic or solid mass. SPLEEN: No significant abnormality. Normal size without focal cystic or solid mass. ADRENALS: No significant abnormality. No nodules. KIDNEYS AND URETERS: Multiple stones within the right renal pelvis are again identified. Mild wall thickening of the renal pelvis perhaps indicating pyelitis which may be secondary to chronic inflammatory change. Left renal cyst for which no follow-up is indicated. Normal renal size and position. No hydronephrosis. STOMACH AND BOWEL: Colonic diverticulosis without definitive evidence of acute diverticulitis. No stomach or bowel distention. PELVIS: APPENDIX: No evidence of acute appendicitis. BLADDER: No significant abnormality. No distinct correlate for the hypermetabolic activity in the urinary bladder demonstrated on comparison PET/CT. REPRODUCTIVE: Prostatomegaly. ABDOMEN and PELVIS: INTRAPERITONEAL SPACE: No significant abnormality. No ascites or other fluid collection. No free air. BONES/JOINTS: Median sternotomy. Degenerative changes in the spine, pelvis, and hips. Paget''s disease of the right hemipelvis. No suspicious lytic or blastic abnormality. SOFT TISSUES: No significant abnormality. No discrete abdominal or pelvic wall hernia. VASCULATURE: Large unruptured partially thrombosed lobulated abdominal aortic aneurysm measuring up to 4.8 cm. This appears similar to the prior examination. LYMPH NODES: No significant abnormality. No enlarged lymph nodes. CT/Abdomen/Pelvis W IV Cont ONLY IMPRESSION: 1. Large unruptured partially thrombosed lobulated abdominal aortic aneurysm measuring up to 4.8 cm. This appears similar to the prior examination. ACR White Paper guidelines (Jean Carlos, et al. JACR 2013; 10(10):789-94) suggest abdomen/pelvis CT or MR imaging follow-up in 6 months. Consider surgical or endovascular referral. 2. No distinct correlate for the hypermetabolic activity in the urinary bladder demonstrated on comparison PET/CT. 3. Cholelithiasis and pericholecystic edema and/or gallbladder wall thickening suggesting cholecystitis. Recommend right upper quadrant ultrasound. 4. Coronary artery calcifications and/or stents. Status post CABG. Cardiomegaly. No pericardial effusion. 5. Patchy nonmass-like areas of hypoattenuation within the liver are nonspecific, similar to the prior examination perhaps related to perfusional variants. 6. Multiple stones within the right renal pelvis are again identified. Mild wall thickening of the renal pelvis perhaps indicating pyelitis which may be secondary to chronic inflammatory change. 7. Prostatomegaly. 8. Colonic diverticulosis without definitive evidence of acute diverticulitis. Electronically Signed: Rodrigo Christy DO at 18:37 EDT ,
--- NOTE | 2023-11-28 17:01 | ED.VIS.GI ---
HPI HPI - GI History of Present Illness Chief Complaint: Abd Pain Detail of Chief Complaint: Abdominal pain Informant: patient Narrative Narrative: Patient presents to the emergency department with complaint of lower abdominal pain and started today. Rates his pain a 7 out of 10. Patient history of prostate cancer. Scheduled to start radiation therapy. He denies blood in his stool or black tarry stool. Denies nausea or vomiting. Patient denies urinary symptoms. Patient on warfarin for history of PE. Patient denies fever or recent illness. PFSH PFSH Medical History Pulmonary embolism Nocturia Prostate cancer Elevated PSA Home Medications ?Medication ?Instructions ?Recorded ?Last Taken ?Type glipizide 10 mg tablet, extended 10 mg PO DAILY DIABETES 01/21/18 Unknown History release 24 hr (Glucotrol XL) hydrochlorothiazide 25 mg tablet 25 mg PO DAILY BP 01/21/18 Unknown History lisinopril 5 mg tablet 5 mg PO DAILY BP 01/21/18 01/28/18 06:00 History sitagliptin phosphate 100 mg 100 mg PO DAILY DAIBETES 01/21/18 Unknown History tablet (Januvia) phenazopyridine 100 mg tablet 100 mg PO TID #20 TABLETS 01/30/18 Unknown Rx carbamide peroxide 6.5 % ear drops 5 drp LEFT EAR DAILY 4 days #15 mL 10/02/23 Unknown Rx (Debrox) metformin 500 mg tablet 500 mg PO DAILY DIABETES 10/19/23 Unknown History simvastatin 5 mg tablet 5 mg PO DAILY 10/19/23 Unknown History warfarin 1 mg tablet 1 mg PO 3XW 10/19/23 Unknown History dutasteride 0.5 mg capsule 0.5 mg PO DAILY 10/21/23 Unknown History finasteride 5 mg tablet 5 mg PO DAILY 10/21/23 Unknown History Allergy/AdvReac Type Severity Reaction Status Date / Time codeine Allergy BLISTERS Verified 11/11/23 11:08 Social History Smoking Status: Former smoker alcohol intake: never substance use type: does not use ROS ROS ED Review of Systems ROS Unobtainable: other Constitutional Constitutional ED: Reports lethargy; Denies chills, fever(s), sweats or weight loss Eyes Eyes: Denies blurry vision, change in vision or diplopia ENT ENT ED: Denies rhinorrhea or sore throat Cardiovascular Cardiovascular: Denies chest pain, orthopnea or racing heartbeat Respiratory/Chest Respiratory/Chest: Denies cough, dyspnea, dyspnea on exertion, orthopnea or sputum Gastrointestinal Gastrointestinal: Reports abdominal pain; Denies diarrhea, nausea or vomiting Genitourinary Genitourinary ED: Denies dysuria, hematuria or urinary frequency Musculoskeletal Musculoskeletal: Denies arthralgias, back pain, myalgias or neck pain Integumentary Denies abscess, Abrasions or rash Neurologic Neurologic: Denies headache(s) or weakness Psychiatric Psychiatric: Denies anxiety, depression or suicidal thoughts Endocrine Endocrinology: Denies polydipsia, polyphagia or polyuria Hematologic/Lymphatic Hematologic/Lymphatic: Denies easy bleeding, easy bruising or lymphadenopathy Allergic/Immunologic Allergic/Immunologic ED: Denies mouth swelling, tongue swelling or urticaria EXAM Physical Exam Const Vital Signs: 11/28/23 16:47 11/28/23 18:47 11/28/23 19:00 Temperature 98.3 F 97.8 F Temperature Source Oral Oral Pulse Rate 88 83 83 Respiratory Rate 15 15 15 Blood Pressure 124/78 H 140/112 H 140/112 H Blood Pressure Mean 93 121 121 Pulse Ox 100 99 99 Oxygen Delivery Method Room Air Room Air Room Air 11/28/23 20:00 Temperature 98.8 F Temperature Source Oral Pulse Rate 73 Respiratory Rate 15 Blood Pressure 148/72 H Blood Pressure Mean 97 Pulse Ox 94 Oxygen Delivery Method Room Air Positive well nourished and well developed General Appearance ED: well developed and NAD HEENT Reports TM's clear and moist mucous membranes normocephalic and atraumatic; Negative for trauma or tenderness Tympanic Membrane ED: Yes TM's clear Eyes PERRL and EOMs intact bilaterally General Eye ED: Negative for pale conjunctiva or scleral icterus Neck no lymphadenopathy, supple and no JVD General: Negative for tenderness Chest Wall inspection of chest normal and palpation of chest normal Chest: Negative for tenderness Resp normal respiratory effort and clear to auscultation bilaterally Effort and Inspection: Negative for respiratory distress or pain with movement Auscultation: Negative for rhonchi, wheezes or diminished lung sounds Cardio regular rate, regular rhythm, S1 normal heart sound, S2 normal heart sound and no murmurs Peripheral Pulses: pulses 2+ throughout GI normal to inspection, nondistended, normoactive bowel sounds, soft to palpation, non-distended and no masses GI Narrative: Patient with diffuse tenderness palpation over the lower abdomen suprapubic region right lower quadrant and left lower quadrant with guarding. There is no rebound, rigidity, or peritoneal signs. No mass palpated. Back/Spine no CVA tenderness and no thoracic nor lumbar tenderness Extremity normal to inspection General Extremety ED: Negative for edema General Extremity: Negative for edema Neuro oriented x3, CN's II-XII intact bilaterally, no sensory deficits noted and gait normal Sensorium / Orientation: awake, alert, oriented to person, oriented to place and oriented to time Motor Exam: strength 5/5 throughout and strength abnormal Psych mental status grossly normal Skin no rashes or lesions noted and no wounds MDM MDM MDM Narrative Medical decision making narrative: Patient presents with lower abdominal pain that started today. Significantly tender to the lower abdomen. In the differential would be acute appendicitis versus diverticulitis versus bowel obstruction or bowel perforation or AAA. IV line established. Patient medicated with morphine and Zofran. CBC with differential white count of 12.7 with hemoglobin 12.8 and platelet count of 130. Chemistries unremarkable. INR was 1.7. BUN 40 and creatinine 1.77. Lactate was elevated 3.4. Glucose was 297. Urinalysis unremarkable. CT scan of the abdomen pelvis showed gallstones with thickened gallbladder wall and pericholecystic fluid. 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 Discussed findings with our general surgeon Dr. Worrell who evaluated patient CT scan and prior CT scan from October of this year which looked similar. Her concern is the AAA as this may be symptomatic and causing his symptoms. Patient continues to have significant pain I was asked to transfer him to a tertiary care center. Initially patient wanted go to [facility] As they are part of the [facility]. Spoke with the vascular surgeon there who would not be able to accept him as she does not do repairs of suprarenal aneurysms and recommended transfer to [facility]. Discussed case with [facility] vascular surgeon who accepted transfer of patient to their facility and they will auto launch a helicopter for concern of a symptomatic AAA. I do not feel patient has acute cholecystitis as he does not have significant pain in the upper right quadrant and has normal LFTs with similar findings of the gallbladder on previous CT from October of this year. Lab Data Attestation: I reviewed the patient's lab results. Labs: Laboratory Results - last 24 hr 11/28/23 11/28/23 17:15 18:40 WBC 12.7 H RBC 4.61 Hgb 12.8 L Hct 41.6 MCV 90.2 MCH 27.8 MCHC 30.8 L RDW Std Deviation 49.1 H RDW Coeff of Didier 14.8 H Plt Count 130 L MPV 10.0 Immature Gran % (Auto) 0.500 Neut % (Auto) 89.7 H Lymph % (Auto) 4.9 L [place] % (Auto) 4.2 Eos % (Auto) 0.4 Baso % (Auto) 0.3 Absolute Neuts (auto) 11.4 H Absolute Lymphs (auto) 0.63 L Nucleated RBC % 0 PT 20.0 H INR 1.7 Sodium 138 Potassium 4.9 Chloride 105 Carbon Dioxide 25.0 Anion Gap 8 BUN 40 H Creatinine 1.77 H Estim Creat Clear Calc 32.82 Est GFR (MDRD) Af Amer 47 L Est GFR (MDRD) Non-Af 39 L BUN/Creatinine Ratio 22.6 H Glucose 297 H Lactic Acid 3.4 H* Calcium 9.3 Total Bilirubin 1.30 H AST 24 ALT 23 Alkaline Phosphatase 83 Total Protein 8.0 Albumin 4.0 Globulin 4.0 Albumin/Globulin Ratio 1.0 Urine Color Yellow Urine Clarity Sl. Cloudy Urine pH 6.0 Ur Specific [place] 1.015 Urine Protein 30 H Urine Glucose (UA) 250 H Urine Ketones 5 H Urine Occult Blood 50 H Urine Nitrite Negative Urine Bilirubin Negative Urine Urobilinogen Normal Ur Leukocyte Esterase Negative Urine RBC 0-5 SEEN Urine WBC 0-5 SEEN Ur Squamous Epith Cells 0 SEEN Urine Bacteria 0 SEEN Urine Mucus 0 SEEN Radiography Diagnostic Testing: Clinical Impression(s) from Imaging Studies Abdomen/Pelvis CT 11/28/23 17:00 IMPRESSION: 1. Large unruptured partially thrombosed lobulated abdominal aortic aneurysm measuring up to 4.8 cm. This appears similar to the prior examination. ACR White Paper guidelines (Jean Carlos et al. JACR 2013; 10(10):789-94) suggest abdomen/pelvis CT or MR imaging follow-up in 6 months. Consider surgical or endovascular referral. 2. No distinct correlate for the hypermetabolic activity in the urinary bladder demonstrated on comparison PET/CT. 3. Cholelithiasis and pericholecystic edema and/or gallbladder wall thickening suggesting cholecystitis. Recommend right upper quadrant ultrasound. 4. Coronary artery calcifications and/or stents. Status post CABG. Cardiomegaly. No pericardial effusion. 5. Patchy nonmass-like areas of hypoattenuation within the liver are nonspecific, similar to the prior examination perhaps related to perfusional variants. 6. Multiple stones within the right renal pelvis are again identified. Mild wall thickening of the renal pelvis perhaps indicating pyelitis which may be secondary to chronic inflammatory change. 7. Prostatomegaly. 8. Colonic diverticulosis without definitive evidence of acute diverticulitis. Electronically Signed: Rodrigo Christy DO at 18:37 EDT , Gallbladder Ultrasound 11/28/23 18:42 IMPRESSION: 1. Cholelithiasis and gallbladder wall thickening. These findings are equivocal for cholecystitis in the setting of a negative sonographic Cosby''s sign. Correlate clinically. Consider follow-up hepatobiliary scan. 2. Previously identified renal stones are not visualized. Electronically Signed: Rodrigo Christy DO at 20:35 EDT , Discharge Plan Triage Chief Complaint: Abd Pain ED Provider: [facility] Dx/Rx/DC Orders Clinical Impression: Abdominal pain, Abdominal aortic aneurysm, Acidosis, lactic, Leukocytosis, Hx of prostatic malignancy Prescriptions: No Action dutasteride 0.5 mg capsule 0.5 mg PO DAILY finasteride 5 mg tablet 5 mg PO DAILY simvastatin 5 mg tablet 5 mg PO DAILY warfarin 1 mg tablet 1 mg PO 3XW glipizide [Glucotrol XL] 10 MG tablet extended release 24hr 10 mg PO DAILY lisinopril 5 MG tablet 5 mg PO DAILY hydrochlorothiazide 25 MG tablet 25 mg PO DAILY sitagliptin phosphate [Januvia] 100 MG tablet 100 mg PO DAILY phenazopyridine 100 MG tablet 100 mg PO TID Qty: 20 0RF metformin 500 mg tablet 500 mg PO DAILY Debrox 6.5 % drops 5 drp LEFT EAR DAILY 4 Days Qty: 15 0RF Primary Care Provider: Luis Enrique Reynolds Referrals: Luis Enriqeu Reynolds MD [Primary Care Provider] - Print Language: [place] Disposition Disposition: DC/Tx to Another Type of HCF
[2023-11-28] MEDS: 0.9% Normal Saline (1000mL) 1,000 ML 125 ML IV (17:21)
[2023-11-28] MEDS: Morphine 4 MG/ML Syringe IV ×2 (17:22→21:28)
[2023-11-28] MEDS: Ondansetron 4 MG/2 ML Vial IV (17:23)
[2023-11-28 17:31] LABS: Absolute Lymphocyte Count 0.63 X10^3/uL (0.83-4.51); Absolute Neutrophil Count 11.4 X10^3/uL (2.0-7.7); Basophil# 0.04 X10^3/uL; Basophil% 0.3 % (0-1); Eosinophil# 0.05 X10^3/uL; Eosinophils% 0.4 % (0-5); Hematocrit 41.6 % (40-54); Hemoglobin 12.8 g/dL (13.0-16.5); Lymphocyte # 0.63 X10^3/ul (0.83-4.51); Lymphocyte % 4.9 % (19-41); Mean Corp Hgb Conc 30.8 g/dL (32-36); Mean Corpuscular Hgb 27.8 pg (27.0-32.0); Mean Corpuscular Volume 90.2 fL (80-94); Monocyte# 0.54 X10^3/uL; Monocyte% 4.2 % (0-10); NRBC Flagged by Analyzer 0 % (0-5); Neutrophil # 11.41 X10^3/uL (2.7-7.7); Neutrophil % 89.7 % (47-70); Platelet Count 130 K/mm3 (150-450); RBC Distribution Width CV 14.8 % (11.6-14.6); RBC Distribution Width SD 49.1 fl (35.1-43.9); Red Blood Count 4.61 M/mm3 (4.6-6.2); White Blood Count 12.7 K/mm3 (4.4-11.0)
[2023-11-28 17:47] LABS: AST(SGOT) 24 U/L (15-37); Alanine Aminotransfer ALT/SGPT 23 U/L (16-61); Alkaline Phosphatase 83 U/L (45-117); Anion Gap 8 (5-15); BUN 40 mg/dL (7-18); BUN/Creat Ratio 22.6 RATIO (10-20); Calcium,Total 9.3 mg/dL (8.5-10.1); Chloride 105 mmol/L (98-107); Creatinine, Serum 1.77 mg/dL (0.70-1.30); EST Glomerular Filtration Rate 39 mL/min (>60); Est Glom Filt Rate - Afr Amer 47 mL/min (>60); Estimated Creatinine Clearance 32.82 ml/min; Glucose 297 mg/dL (74-106); Potassium 4.9 mmol/L (3.5-5.1); Sodium Level 138 mmol/L (136-145)
[2023-11-28 18:36] LABS: Lactic Acid 3.4 mmol/L (0.4-1.9)
--- NOTE | 2023-11-28 18:42 | US_ITS ---
EXAM: US ABDOMEN LIMITED, RIGHT UPPER QUADRANT CLINICAL INDICATION: ruq pain TECHNIQUE: Real-time ultrasound of the right upper quadrant with image documentation. COMPARISON: CT abdomen and pelvis on the same date. FINDINGS: LIVER: No significant abnormality. There is normal echotexture. No focal hepatic lesion. No intrahepatic biliary ductal dilation. GALLBLADDER: Multiple gallstones are identified. Apparent wall thickening of the gallbladder measuring up to approximately 6 mm. Negative sonographic Cosby''s sign. No pericholecystic fluid. COMMON BILE DUCT: Normal as visualized. The proximal common bile duct is within normal limits for the patient''s age. PANCREAS: Normal as visualized. No focal abnormality is demonstrated in the pancreas. No pancreatic ductal dilatation. RIGHT KIDNEY: Previously identified renal stones are not visualized. No focal lesion or perinephric collection is demonstrated. US/Gallbladder IMPRESSION: 1. Cholelithiasis and gallbladder wall thickening. These findings are equivocal for cholecystitis in the setting of a negative sonographic Cosby''s sign. Correlate clinically. Consider follow-up hepatobiliary scan. 2. Previously identified renal stones are not visualized. Electronically Signed: Rodrigo Christy DO at 20:35 EDT ,
[2023-11-28 18:47] VITALS: BP 140/112; PULSE 83; RESP 15; O2SAT 99
[2023-11-28 19:00] VITALS: BP 140/112; PULSE 83; RESP 15; TEMP 36.6; O2SAT 99
[2023-11-28 19:08] LABS: International Normalized Ratio 1.7
[2023-11-28 19:14] LABS: Bacteria 0 SEEN /hpf (None Seen); Mucous, Urine 0 SEEN /hpf (<or=2+); Squamous Epithelial Cells - UA 0 SEEN /hpf (0-5)
[2023-11-28 19:18] LABS: Color, Urine Yellow (Yellow); Glucose, Dipstick 250 mg/dl (Normal); Ketone-Dipstick 5 mg/dl (Negative); Leukocyte Esterase-Dipstick Negative /ul (Negative); Nitrite-Dipstick Negative (Negative); Occult Blood-Urine 50 /ul (Negative); Protein-Dipstick 30 mg/dl (Negative); Specific Gravity, Urine 1.015 (1.002-1.030); Urine Bilirubin Dipstick Negative (Negative); Urine Clarity Sl. Cloudy (Clear); Urine Urobilinogen Normal (Normal)
[2023-11-28 19:40] LABS: Red Blood Cells-Urine 0-5 SEEN /hpf (0-5); White Blood Cells 0-5 SEEN /hpf (0-5)
[2023-11-28 20:00] VITALS: BP 148/72; PULSE 73; RESP 15; TEMP 37.1; O2SAT 94
[2023-11-28 21:26] LABS: Reflex Lactate? Y
[2023-11-28 21:30] VITALS: BP 165/113; PULSE 89; RESP 19; TEMP 36.6; O2SAT 98
== END 2023-11-28 21:37 | disposition other institution (70) ==
PROVIDERS: Emergency Provider Emergency Medicine; PCP Family Medicine; Visit Provider Emergency Medicine
DX: I71.40 Abdominal aortic aneurysm, without rupture, unspecified (principal); D72.829 Elevated white blood cell count, unspecified; K80.20 Calculus of gallbladder without cholecystitis without obstruction; E87.20 Acidosis, unspecified; Z79.01 Long term (current) use of anticoagulants; Z79.84 Long term (current) use of oral hypoglycemic drugs; Z79.899 Other long term (current) drug therapy; Z85.46 Personal history of malignant neoplasm of prostate; Z86.711 Personal history of pulmonary embolism; Z87.891 Personal history of nicotine dependence
CPT/HCPCS: 74177; 76705; 80053; 81001; 82274; 83605; 85025; 85610; 96361; 96374; 96375; 96376; 99284; J7030; Q9967; A4216; J2405

== ENCOUNTER 2023-12-29 08:52 | Day surgery (SDC) | payer MEDICARE, OTHER, SELFPAY ==
[2023-12-29] VITALS (7 sets, daily range): BP systolic 82–141; BP diastolic 45–73; PULSE 62–73; RESP 16–18; TEMP 36.4–36.7; O2SAT 95–98; BMI 22.1
--- NOTE | 2023-12-29 09:23 | PRE.ANES_ITS ---
ASA Classification* ASA Classification ASA Classification: 3 Assessment & Plan Anesthesia* Anesthesia Assessment Anesthesia Assessment: Discussed sedation and/or anesthesia options, risks, benefits, and alternatives with patient/parents/legal guardian/POA. Questions invited. The patient/parents/legal guardian/POA seems to understand and agrees to proceed with anesthesia plan. Reviewed the physical assessment, medical history, allergy history and patient home medications list prior to surgery/procedure/anesthetic and documented any changes. Performed airway and anesthesia risk assessments. Anesthesia Type Anesthesia Type: MAC (GA bkup) Anesthesia Focused Assessment* Airway Assessment Mouth opens: >3 cm Mallampati Score: II Focused Labs Anesthesia Preop lab: CBC WBC 12.7 K/mm3 (4.4-11.0) H 11/28/23 17:15 RBC 4.61 M/mm3 (4.6-6.2) 11/28/23 17:15 Hgb 12.8 g/dL (13.0-16.5) L 11/28/23 17:15 Hct 41.6 % (40-54) 11/28/23 17:15 Plt Count 130 K/mm3 (150-450) L 11/28/23 17:15 CHEMISTRY Potassium 4.9 mmol/L (3.5-5.1) 11/28/23 17:15 Sodium 138 mmol/L (136-145) 11/28/23 17:15 BUN 40 mg/dL (7-18) H 11/28/23 17:15 Creatinine 1.77 mg/dL (0.70-1.30) H 11/28/23 17:15 Glucose 297 mg/dL (74-106) H 11/28/23 17:15 POC Glucose 100 mg/dL (70-110) 01/28/18 12:06 COAG PT 20.0 SECONDS (11.7-14.9) H 11/28/23 17:15 Pre-Assessment Diagnosis/Proposed Procedure Planned Operative Procedure(s): SPACE OAR GEL AND GOLD MARKERS Anesthesia History 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 Any Problems With Anesthesia No 12/20/23 11:15 Cholinesterase deficiency No 12/20/23 11:15 You/Your Family Experience No 12/20/23 11:15 fever (hyperthermia) with Relationship Recent Exposure to Contagious No 01/28/18 08:35 Disease Does patient have nerve No 12/20/23 11:15 stimulator Patient instructed to have device shut off --Does patient have Pacemaker or ICD? When Was Last Pacemaker Check QUESTION #4 FULL TEXT: You/Your Family Experience fever (hyperthermia) with Anesthesia Last Oral Intake Last Oral intake: Last Oral Intake NPO since Meds taken in AM with sips of water? Meds patient instructed to take am of surgery PONV PONV - instrumentation instructor: PONV - instrumentation instructor Female No 12/20/23 11:15 HX of Motion Sickness No 12/20/23 11:15 HX of N/V After Surgery No 12/20/23 11:15 Non-Smoker Yes 12/20/23 11:15 Duration of Surgery greater No 12/20/23 11:15 than 60 minutes Number of Risk Factors 1 12/20/23 11:15 PONV Score Low Risk 12/20/23 11:15 Height & Weight Height & Weight: Anesthesia: Height & Weight Height 5 ft 11 in 11/28/23 16:47 Respiratory Assessment Respiratory Assessment - instrumentation instructor: Respiratory Tract Infection Hx - instrumentation instructor Hx Respiratory Tract Infection No 12/20/23 11:15 STOP Sleep Apnea STOP Sleep Apnea - instrumentation instructor: STOP Sleep Apnea - instrumentation instructor Hx Hypertension Yes: CONTROLLED WITH MED 12/20/23 11:15 Hx Sleep Apnea No 12/20/23 11:15 CPAP BIPAP Do you snore loudly (louder No 12/20/23 11:15 than talking or can be heard Do you often feel tired/ Yes 12/20/23 11:15 fatigued/ sleepy during daytime? Has anyone observed you stop No 12/20/23 11:15 breathing during sleep? STOP Results Positive 12/20/23 11:15 QUESTION #5 FULL TEXT : Do you snore loudly (louder than talking or can be heard through closed doors)? 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 Specify any problems Hx of Preganancy in last 3 N/A 12/20/23 11:15 Months Nurse Filling Out Transfusion DSCHRIBER 12/20/23 11:15 & Questions: Date: 12/20/23 12/20/23 11:15 Time: 11:21 12/20/23 11:15 Patient unable to answer at this time (ie. confused, unrespo /Reproduction History /Reproductive History - instrumentation instructor: /Reproductive Hx- instrumentation instructor Hx Now No 12/20/23 11:15 Gestational Age (in weeks): EDC: Hx Hx Para Hx Section SAB No 12/20/23 11:15 Active Medications Active Medications: Current Medications Generic Name Dose Route Start Last Admin Trade Name Freq PRN Reason Stop Dose Admin Cefazolin Sodium 2 gm/ N/A 20 mls @ 400 mls/hr 12/29/23 13:20 IV 12/29/23 13:22 PREOP ONE Lactated Ringer's 1,000 mls @ 15 mls/hr 12/29/23 09:15 IV 01/01/24 03:54 .Q48H [facility] Protocol PFSH Medical History Abdominal aneurysm Loss of hearing Wears glasses Ambulates with cane Diabetes Arthritis Syncope Dietary restriction Former smoker Shortness of breath on exertion History of pain when walking Hypertension Cardiology follow-up encounter History of atrial fibrillation Back pain Pulmonary embolism Nocturia Prostate cancer Elevated PSA Home Medications ?Medication ?Instructions ?Recorded ?Last Taken ?Type glipizide 10 mg tablet, extended 5 mg PO DAILY DIABETES 01/21/18 Unknown History release 24 hr (Glucotrol XL) hydrochlorothiazide 25 mg tablet 25 mg PO DAILY BP 01/21/18 Unknown History lisinopril 5 mg tablet 5 mg PO DAILY BP 01/21/18 01/28/18 06:00 History sitagliptin phosphate 100 mg 100 mg PO DAILY DAIBETES 01/21/18 Unknown History tablet (Januvia) metformin 500 mg tablet 500 mg PO DAILY DIABETES 10/19/23 Unknown History simvastatin 5 mg tablet 40 mg PO DAILY 10/19/23 Unknown History warfarin 1 mg tablet 4 mg PO SUMOTUTHFRSA 10/19/23 Unknown History dutasteride 0.5 mg capsule 0.5 mg PO DAILY 10/21/23 Unknown History finasteride 5 mg tablet 5 mg PO DAILY 10/21/23 Unknown History warfarin 4 mg tablet 2 mg PO WE 12/20/23 Unknown History Allergy/AdvReac Type Severity Reaction Status Date / Time codeine Allergy BLISTERS Verified 12/20/23 11:03 Surgical History Hx of right cataract extraction Hx of left cataract extraction Hx of hemorrhoidectomy Hx of inguinal hernia surgery History of quadruple bypass Hx of tonsillectomy Hx of colonoscopy History of transurethral resection of prostate Social History Smoking Status: Former smoker alcohol intake: never substance use type: does not use Review of Systems (Anesthesia) ROS Narrative System reviewed and no additional complaints, except as documented.
[2023-12-29 10:26] LABS: Bedside Glucose 111 mg/dL (74-106)
--- NOTE | 2023-12-29 11:30 | PCM.HP.STD ---
HPI - General General Date of Service: 12/29/23 Chief Complaint: Prostate cancer HPI Narrative HUA ADAN, is a 83 M who presents for placement of gold markers and spacer gel to plan treatment for prostate cancer PFS Medical History Abdominal aneurysm Loss of hearing Wears glasses Ambulates with cane Diabetes Arthritis Syncope Dietary restriction Former smoker Shortness of breath on exertion History of pain when walking Hypertension Cardiology follow-up encounter History of atrial fibrillation Back pain Pulmonary embolism Nocturia Prostate cancer Elevated PSA Home Medications ?Medication ?Instructions ?Recorded ?Last Taken ?Type glipizide 10 mg tablet, extended 5 mg PO DAILY DIABETES 01/21/18 12/29/23 History release 24 hr (Glucotrol XL) hydrochlorothiazide 25 mg tablet 25 mg PO DAILY BP 01/21/18 12/29/23 History lisinopril 5 mg tablet 5 mg PO DAILY BP 01/21/18 12/28/23 History sitagliptin phosphate 100 mg 100 mg PO DAILY DAIBETES 01/21/18 12/29/23 History tablet (Januvia) metformin 500 mg tablet 500 mg PO DAILY DIABETES 10/19/23 12/29/23 History simvastatin 5 mg tablet 40 mg PO DAILY 10/19/23 12/29/23 History warfarin 1 mg tablet 4 mg PO SUMOTUTHFRSA 10/19/23 Unknown History dutasteride 0.5 mg capsule 0.5 mg PO DAILY 10/21/23 12/29/23 History finasteride 5 mg tablet 5 mg PO DAILY 10/21/23 12/29/23 History warfarin 4 mg tablet 2 mg PO WE 12/20/23 Unknown History Allergy/AdvReac Type Severity Reaction Status Date / Time codeine Allergy BLISTERS Verified 12/29/23 09:34 Surgical History Hx of right cataract extraction Hx of left cataract extraction Hx of hemorrhoidectomy Hx of inguinal hernia surgery History of quadruple bypass Hx of tonsillectomy Hx of colonoscopy History of transurethral resection of prostate Social History Smoking Status: Former smoker alcohol intake: never substance use type: does not use Vital Signs Vital Signs Vital Signs: 12/29/23 09:43 12/29/23 09:43 Temperature 98.0 F Temperature Source Temporal Pulse Rate 73 Respiratory Rate 18 Respiratory Pattern Normal Blood Pressure 141/72 H Blood Pressure Mean 95 Blood Pressure Source Monitor Blood Pressure Position Semi-Fowlers Blood Pressure Location Left Arm Pulse Ox 96 Oxygen Delivery Method Room Air Weight Weight: 72 kg Body Mass Index (BMI) 22.1 Results Lab / Micro Data Labs: Laboratory Results - last 24 hr 12/29/23 09:41: POC Glucose 111 H
[2023-12-29] MEDS: Cefazolin 2 GM in Syringe IV (12:02)
--- NOTE | 2023-12-29 12:25 | DCINST_ITS ---
Discharge Instructions Diet Discharge Diet: No restrictions Activity Discharge Activity: Return to Normal Activity Dressing / Incision Call your doctor if you observe: Fever of 101 or Higher Follow Up Care Please Follow Up With: Maikel Marcum MD When: Call [phone] for an appointment Test Results: Test results from this visit will be discussed in further detail at your follow- up appointment, if applicable. Discharge Plan Admission Primary Reason for Your Visit: markers and spacer gel Attending Provider: Maikel Marcum Primary Care Provider: Luis Enrique Reynolds Instructions Print Language: [place] Discharge Orders/Prescriptions Prescriptions: New ciprofloxacin HCl [Cipro] 500 mg tablet 500 mg PO BID Qty: 10 0RF Continued dutasteride 0.5 mg capsule 0.5 mg PO DAILY finasteride 5 mg tablet 5 mg PO DAILY simvastatin 5 mg tablet 40 mg PO DAILY warfarin 1 mg tablet 4 mg PO SUMOTUTHFRSA glipizide [Glucotrol XL] 10 MG tablet extended release 24hr 5 mg PO DAILY lisinopril 5 MG tablet 5 mg PO DAILY hydrochlorothiazide 25 MG tablet 25 mg PO DAILY Januvia 100 MG tablet 100 mg PO DAILY metformin 500 mg tablet 500 mg PO DAILY warfarin 4 mg tablet 2 mg PO WE Referrals / Follow Up: Maikel Marcum MD [Med Staff - Active Staff] - Luis Enrique Reynolds MD [Primary Care Provider] - Disposition Disposition (needs filled in before D/C Order can be placed): Home, Self Care
--- NOTE | 2023-12-29 12:25 | OP.PCM_ITS ---
Report of Operation Date of Procedure: 12/29/23 Pre-Operative Diagnosis: prostate cancer Post-Operative Diagnosis: same, gold markers and spacer gel for radiation therapy. Surgery/Procedure Performed:: Placement of gold markers and the prostate and also spacer gel matrix in preparation for radiation Description of Surgical Findings:: The penis and testicles were prepped and draped in usual sterile fashion, ultrasound probe was placed into the rectum and biplanar ultrasound was performed on the prostate. Identified the base mid and apex of the prostate identified the transition zone prostate. Then using a needle the first scalper operator was placed into the right base of the prostate, the second scalper operator was placed in the left base of the prostate, and the third core marker was placed in the right apex of the prostate after all 3 markers were placed the placement of the markers were confirmed by ultrasonography. CUTTING MACHINE [employer] Blough preformed Mac anestheisa, The genitals and perineum were prepped and draped in usual sterile fashion. I then introduced a biplanar ultrasound probe into the rectum and performed ultrasonography and identified the Denonvilliers' fascia the prostate mid base and apex and seminal vesicles. The spacer gel mix was then prepared on the back table per manufactures instruction. Under ultrasound guidance in the midline perineum a bevel needle down we advanced through the perineum below the prostate into the space of Denonvilliers' fascia. This space which could be identified by ultrasound with a bright white layer between the prostate and the rectum. I then injected a puff of normal saline to identify the space further. After I confirmed that the needle was in the correct space in the mid prostate and the space of Denonvilliers' fascia between the rectum and the prostate. Then over the course of 15 seconds the gel matrix was injected slowly there was nice separation between the prostate and the rectum at the gel matrix was injected. The position of the gel matrix was confirmed by ultrasound. Then the injection needle was removed intact. Patient's perineum was cleaned patient was taken out of stirrups and then taken back to the PACU in good condition. Surgeon: Maikel Marcum Type of Anesthesia: MAC Drains: 0 Estimated Blood Loss (mL): 0 Grafts/Implants Used: gold markers and spacer gel matrix Procedure Start Time: 12:02 Procedure Stop Time: 12:28 Complications none Admit VTE Documentation VTE Present on Admission: No VTE Mechan Device Prophylaxis: SCD's VTE Pharm Prophylaxis ordered?: No
--- NOTE | 2023-12-29 12:55 | PCM.POST.ANE ---
Anesthesia: Postop Eval I Current Vital Signs Temperature: 98.5 F Pulse Rate: 67 Blood Pressure: 135/67 Respiratory Rate: 18 Pulse Ox: 98 Assessment Airway patent: Yes Spontaneous unlabored respirations: Yes nausea: No Vomiting: No Anesthesia Complication: No Fluid Hydration Crystalloid volume administer (ml): 10 Total IV fluid infused: 10 Progress Note Anesthesia document: Postop Eval 1 completed: Yes
--- NOTE | 2023-12-29 22:57 | PCM.POSTANE2 ---
Anesthesia Postop Eval I Sum Anesthesia Postop Eval I Summary Anesthesia Postop Eval I Summary: Anesthesia Postop Eval I: Assessment Summary Airway patent Spontaneous unlabored respirations Mental status nausea Vomiting Anesthesia Postop Eval I: Fluid Summary Crystalloid volume administer (ml) Colloids volume administered ( ml) Blood Product volume administered (ml) Total IV fluid infused Anesthesia Postop Eval I: Summary Notes Anesthesia Complication Anesthesia Complication Comment: Post-operative progress note Anesthesia: Postop Eval II Evaluation Mental status: Awake and Calm Pain Level: 1 nausea: No Vomiting: No Complications Anesthesia Complication: No
--- NOTE | 2023-12-30 07:38 | PCM.POSTANE2 ---
Anesthesia Postop Eval I Sum Anesthesia Postop Eval I Summary Anesthesia Postop Eval I Summary: Anesthesia Postop Eval I: Assessment Summary Airway patent Spontaneous unlabored respirations Mental status Awake,Calm 12/29/23 22:58 nausea No 12/29/23 22:58 Vomiting No 12/29/23 22:58 Anesthesia Postop Eval I: Fluid Summary Crystalloid volume administer (ml) Colloids volume administered ( ml) Blood Product volume administered (ml) Total IV fluid infused Anesthesia Postop Eval I: Summary Notes Anesthesia Complication No 12/29/23 22:58 Anesthesia Complication Comment: Post-operative progress note Anesthesia: Postop Eval II Evaluation Mental status: Awake Pain Level: 0 nausea: No Vomiting: No
[2023-12-30 07:51] VITALS: BP 135/67; PULSE 67; RESP 18; TEMP 36.9; O2SAT 98
[2024-01-12 12:15] LABS: INR Fingerstick 1.1
== END 2023-12-29 13:23 | disposition home or self-care (01) ==
LOC: SDC 08:53 → AC 08:55
PROVIDERS: PCP Family Medicine; Referring Provider Urology; Visit Provider Urology
PROC: (CPT 55874; principal; 2023-12-29 10:45)
DX: C61 Malignant neoplasm of prostate (principal); I48.91 Unspecified atrial fibrillation; E11.9 Type 2 diabetes mellitus without complications; I25.10 Atherosclerotic heart disease of native coronary artery without angina pectoris; I10 Essential (primary) hypertension; Z79.84 Long term (current) use of oral hypoglycemic drugs; Z79.01 Long term (current) use of anticoagulants; Z79.899 Other long term (current) drug therapy; Z87.891 Personal history of nicotine dependence; Z95.1 Presence of aortocoronary bypass graft
CPT/HCPCS: 55874; 55876; 00902; 36416; 82962; 85610; J7120; A4216; J2405

== ENCOUNTER → 2024-01-05 | Outpatient (CLI) | payer MEDICARE, OTHER, SELFPAY ==
--- NOTE | 2024-01-05 10:56 | MRI_ITS ---
STUDY: MR PROSTATE GLAND/ PELVIS WITH T WITHOUT CONTRAST REASON FOR EXAM: Male, 83 years old. define local extent of prostate cancer TECHNIQUE: Standardized fat and water weighted pulse sequences were obtained in all 3 orthogonal planes, pre-and post contrast administration. 15cc clariscan was administered for the contrast portion of the examination. COMPARISON: PET/CT exam dated November 09, 2023. CT of abdomen and pelvis dated November 28, 2023. FINDINGS: Prostate gland volume/size: 6.15 x 6.51 x 4.29 cm which is mildly enlarged. Anterior fibromuscular stroma: Normal Peripheral zone: Diffusely low signal throughout the parenchyma of the right peripheral zone. 80% low signal parenchyma throughout the left peripheral zone with exception of the posterior lateral segment which has normal bright parenchyma. Defects seen in the right of midline and posterior aspect of the right peripheral zone is consistent with recent biopsy to this region. A small amount of serous fluid and clotted hemorrhage is present posterior to the biopsy site and anterior to the rectum. Bright signal persist in the inner half of the right peripheral zone also crossing over into the medial aspect of the left peripheral zone. Associated dark ADC map signal is present in the same region, indicating neoplasm. No discrete mass or nodule is present with this is likely due to distortion or excision with the biopsy. Postcontrast enhancement is present throughout the entire prostate gland. Central zone: Diffusely heterogeneous and nodular and hyperplastic. Transitional zone: Diffusely heterogeneous and nodular and hyperplastic. Prostate capsule: Small defect at the right peripheral zone biopsy site otherwise intact. No demonstrated tumor infiltration through the prostate capsule Seminal vesicles: Normal bilaterally Pelvic sidewall lymphadenopathy: None demonstrated Bony structures: No lytic or blastic lesions or enhancing lesions of the bony structures. Normal urinary bladder. Normal visualized small intestine. There are multiple colonic diverticula of the sigmoid colon consistent with chronic diverticulosis. Normal abdominal wall. MRI/Pelvis W/WO Contrast IMPRESSION: 1. Peripheral zone: Diffusely low signal throughout the parenchyma of the right peripheral zone. 80% low signal parenchyma throughout the left peripheral zone with exception of the posterior lateral segment which has normal bright parenchyma. Defects seen in the right of midline and posterior aspect of the right peripheral zone is consistent with recent biopsy to this region. A small amount of serous fluid and clotted hemorrhage is present posterior to the biopsy site and anterior to the rectum. 2. Bright signal persist in the inner half of the right peripheral zone also crossing over into the medial aspect of the left peripheral zone. Associated dark ADC map signal is present in the same region, indicating neoplasm. 3. No discrete mass or nodule is present with this is likely due to distortion or excision with the biopsy. Postcontrast enhancement is present throughout the entire prostate gland. 4. PI-RADS 4: high (clinically significant cancer is likely to be present) Reference information: Normal prostate tissue Benign prostatic hypertrophy cancer/tumor - low signal peripheral , transitional, and central zones malignancy appears as bright on DWI and low signal on ADC map Prostate imaging-reporting and data system (PI-RADS) PI-RADS 1: very low (clinically significant cancer is highly unlikely to be present) PI-RADS 2: low (clinically significant cancer is unlikely to be present) PI-RADS 3: intermediate (the presence of clinically significant cancer is equivocal) PI-RADS 4: high (clinically significant cancer is likely to be present) PI-RADS 5: very high (clinically significant cancer is highly likely to be present) PI-RADS X: component of exam technically inadequate or not performed Prostate malignancy distribution: Peripheral zone: 70-80% Transitional zone: 10-20% Central zone: 5% or less Electronically Signed: Narciso Doyle MD at 16:06 EDT ,
== END | disposition home or self-care (01) ==
LOC: MRI 10:53
PROVIDERS: PCP Family Medicine; Referring Provider Student in an Organized Health Care Education/Training Program; Visit Provider Student in an Organized Health Care Education/Training Program
DX: C61 Malignant neoplasm of prostate (principal)
CPT/HCPCS: 72197; A9575; A4216

== ENCOUNTER → 2024-04-13 | Outpatient (CLI) | payer MEDICARE, OTHER, SELFPAY ==
[2024-04-13 12:59] LABS: PSA,Total- Diagnostic 0.09 ng/mL (0.0-4.0)
== END | disposition home or self-care (01) ==
LOC: LAB 12:05
PROVIDERS: PCP Family Medicine; Referring Provider Urology; Visit Provider Urology
DX: C61 Malignant neoplasm of prostate (principal)
CPT/HCPCS: 36415; 84153

== ENCOUNTER → 2024-07-13 | Outpatient (CLI) | payer MEDICARE, OTHER, SELFPAY ==
[2024-07-13 14:27] LABS: PSA,Total- Diagnostic 0.04 ng/mL (0.00-4.00)
== END | disposition home or self-care (01) ==
LOC: LAB 11:55
PROVIDERS: PCP Family Medicine; Referring Provider Urology; Visit Provider Urology
DX: C61 Malignant neoplasm of prostate (principal)
CPT/HCPCS: 36415; 84153

== ENCOUNTER → 2024-10-19 | Outpatient (CLI) | payer MEDICARE, OTHER, SELFPAY ==
[2024-10-19 11:57] LABS: PSA,Total- Diagnostic 0.03 ng/mL (0.00-4.00)
== END | disposition home or self-care (01) ==
PROVIDERS: PCP Family Medicine; Referring Provider Urology; Visit Provider Urology
DX: C61 Malignant neoplasm of prostate (principal)
CPT/HCPCS: 36415; 84153

== ENCOUNTER 2025-01-11 10:16 | Inpatient (IN) | payer MEDICARE, OTHER, SELFPAY ==
[2025-01-11] VITALS (39 sets, daily range): BP systolic 37–138; BP diastolic 28–112; PULSE 77–137; RESP 14–29; TEMP 36.6; O2SAT 32–100; BMI 24.3; BMI 24.7
--- NOTE | 2025-01-11 10:49 | CT_ITS ---
PROCEDURE: ABDOMEN/PELVIS W IV CONT ONLY 01/11/2025 REASON FOR EXAM: DIFFUSE PAIN TECHNIQUE: Procedure Code: [id number] Modality: CT Procedure: ABDOMEN/PELVIS W IV CONT ONLY Coronal and Sagittal reconstruction series were provided. CONTRAST: Isovue 370 VOLUME: 1111.74 mL One or more dose reduction techniques were used (e.g., Automated exposure control, adjustment of the mA and/or kV according to patient size, use of iterative reconstruction technique. RADIATION DOSE SUMMARY: CTDlvol: 19.70 mGy DLP: 1111.74 mGycm COMPARISON: None. FINDINGS: Lung bases: Cardiomegaly. Atherosclerotic calcifications of the coronary arteries. Large right and trace left pleural effusions. Atelectasis in the lower lobes. Fine interstitial pulmonary densities. Liver: Liver steatosis. Gallbladder: Cholelithiasis. No biliary dilation. Spleen: Unremarkable. Pancreas: Unremarkable. Adrenals: Unremarkable. Kidneys: A 3.5 cm cyst at the midpole of the left kidney. Bilateral kidney stones with the largest in the right renal pelvis measuring 1.4 cm. Mild right hydronephrosis. Bladder: Partially distended but otherwise unremarkable. Reproductive Organs: Unremarkable. Bowel: No bowel wall thickening. No bowel obstruction. Appendix: Unremarkable. Lymph nodes: No lymphadenopathy. 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 Peritoneum / Retroperitoneum: No free air or free fluid. Bones: No acute bony abnormalities. Multilevel degenerate changes of the lumbar spine. Status post median sternotomy. Soft tissues: Anasarca which can be from CHF. CT/Abdomen/Pelvis W IV Cont ONLY IMPRESSION: Chest findings suggestive of CHF. Correlate clinically. Liver steatosis. Cholelithiasis. Bilateral kidney stones with the largest measures 1.4 cm at the right renal pel vis. Mild right hydronephrosis. Reading Location: [facility]
--- NOTE | 2025-01-11 10:49 | EKG12_ITS ---
Test Reason : WEAKNESS Blood Pressure : */* mmHG Vent. Rate : 102 BPM Atrial Rate : * BPM P-R Int : * ms QRS Dur : 112 ms QT Int : 346 ms P-R-T Axes : * 17 206 degrees QTcB Int : 450 ms Atrial fibrillation with rapid ventricular response ST & T wave abnormality, consider lateral ischemia Abnormal ECG Confirmed by MEENA CARSON, PRECIOUS ([id number]), editor dictionary STEPH SORIA ([id number]) on 01/13/2025 7:57:48 AM Referred By: Confirmed By: PRECIOUS ROBLEDO MD
[2025-01-11 11:06] LABS: Hematocrit 32.4 % (40-54); Hemoglobin 9.9 g/dL (13.0-16.5); Immature Granulocytes Count 0.010 X10^3/uL (0.0-0.0); Mean Corp Hgb Conc 30.6 g/dL (32-36); Mean Corpuscular Volume 91.3 fL (80-94); Mean Platelet Vol. 11.0 fl (6.2-12.0); NRBC Flagged by Analyzer 0 % (0-5); POSITIVE COUNT YES; POSITIVE DIFFERENTIAL YES; Platelet Count 82 K/mm3 (150-450); RBC Distribution Width CV 16.3 % (11.6-14.6); RBC Distribution Width SD 55.0 fl (35.1-43.9); Red Blood Count 3.55 M/mm3 (4.6-6.2); White Blood Count 2.6 K/mm3 (4.4-11.0)
[2025-01-11 11:07] LABS: Differential Indicated SCAN CRITERIA MET
[2025-01-11] MEDS: 0.9% Normal Saline (1000mL) 1,000 ML 999 ML IV (11:07)
[2025-01-11 11:13] LABS: Prothrombin Time (Protime)PT. 28.5 SECONDS (11.7-14.9)
[2025-01-11 11:14] LABS: Partial Thromboplast Time 34.7 Seconds (24.1-36.2)
--- NOTE | 2025-01-11 11:15 | EDS_ITS ---
HPI History of Present Illness Chief Complaint: Lower Extremity Injury Narrative Narrative: Patient is a 84-year-old male with past medical history of pulmonary embolism on warfarin, atrial fibrillation, hypertension, hyperlipidemia, type 2 diabetes, CABG, AAA who presents to the emergency department with a chief complaint of leg pain. Patient states that his pain is secondary to the swelling in his lower extremities he states that his legs are always swollen. He states that he lives at home with his and normally gets around with a walker he states that him and are in bad shape currently. [facility] Medical History Abdominal aneurysm Loss of hearing Wears glasses Ambulates with cane Diabetes Arthritis Syncope Dietary restriction Former smoker Shortness of breath on exertion History of pain when walking Hypertension Cardiology follow-up encounter History of atrial fibrillation Back pain Pulmonary embolism Nocturia Prostate cancer Elevated PSA Home Medications ?Medication ?Instructions ?Recorded ?Last Taken ?Type glipizide 10 mg tablet, extended 5 mg PO DAILY DIABETE S 01/21/18 12/29/23 History release 24 hr (Glucotrol XL) hydrochlorothiazide 25 mg tablet 25 mg PO DAILY BP 11/3012/29/23 History sitagliptin phosphate 100 mg 100 mg PO DAILY DAIBETES 01/21/18 12/29/23 History tablet (Januvia) metformin 500 mg tablet 500 mg PO DAILY DIABETES 09/0512/29/23 History warfarin 1 mg tablet 4 mg PO SUMOTUTHFRSA 4 Unknown History dutasteride 0.5 mg capsule 0.5 mg PO DAILY 10/21/23 History finasteride 5 mg tablet 5 mg PO DAILY 10/21/2312/28 History warfarin 4 mg tablet 2 mg PO WE 12/20/23 Unknown History atorvastatin 80 mg tablet 80 mg PO DAILY 01/11/25 Unkn own History furosemide 20 mg tablet 20 mg PO DAILY 01/11/25 Unkn own History glipizide 5 mg tablet, extended 5 mg PO DAILY 01/11/25 Unknown History release 24 hr hydrocodone 7.5 mg-acetaminophen tab PO 01/11/25 Unkno wn History 325 mg tablet lisinopril 10 mg tablet 10 mg PO DAILY 01/11/25 Unkn own History Allergy/AdvReac Type Severity Reaction Status Date / Time codeine Allergy BLISTERS Verified 01/11/25 10:17 Surgical History Hx of right cataract extraction Hx of left cataract extraction Hx of hemorrhoidectomy Hx of inguinal hernia surgery History of quadruple bypass Hx of tonsillectomy Hx of colonoscopy History of transurethral resection of prostate Social History household members: spouse Smoking Status: Former smoker alcohol intake: never substance use type: does not use ROS ROS ED
--- NOTE | 2025-01-11 11:15 | EX.ED.DYSGE1 ---
HPI History of Present Illness Chief Complaint: Lower Extremity Injury Narrative Narrative: Patient is a 84-year-old male with past medical history of pulmonary embolism on warfarin, atrial fibrillation, hypertension, hyperlipidemia, type 2 diabetes, CABG, AAA who presents to the emergency department with a chief complaint of leg pain. Patient states that his pain is secondary to the swelling in his lower extremities he states that his legs are always swollen. He states that he lives at home with his and normally gets around with a walker he states that him and are in bad shape currently. [facility] Medical History Abdominal aneurysm Loss of hearing Wears glasses Ambulates with cane Diabetes Arthritis Syncope Dietary restriction Former smoker Shortness of breath on exertion History of pain when walking Hypertension Cardiology follow-up encounter History of atrial fibrillation Back pain Pulmonary embolism Nocturia Prostate cancer Elevated PSA Home Medications ?Medication ?Instructions ?Recorded ?Last Taken ?Type glipizide 10 mg tablet, extended 5 mg PO DAILY DIABETES 01/21/18 12/29/23 History release 24 hr (Glucotrol XL) hydrochlorothiazide 25 mg tablet 25 mg PO DAILY BP 01/21/18 12/29/23 History sitagliptin phosphate 100 mg 100 mg PO DAILY DAIBETES 01/21/18 12/29/23 History tablet (Januvia) metformin 500 mg tablet 500 mg PO DAILY DIABETES 10/19/23 12/29/23 History warfarin 1 mg tablet 4 mg PO SUMOTUTHFRSA 10/19/23 Unknown History dutasteride 0.5 mg capsule 0.5 mg PO DAILY 10/21/23 12/29/23 History finasteride 5 mg tablet 5 mg PO DAILY 10/21/23 12/29/23 History warfarin 4 mg tablet 2 mg PO WE 12/20/23 Unknown History atorvastatin 80 mg tablet 80 mg PO DAILY 01/11/25 Unknown History furosemide 20 mg tablet 20 mg PO DAILY 01/11/25 Unknown History glipizide 5 mg tablet, extended 5 mg PO DAILY 01/11/25 Unknown History release 24 hr hydrocodone 7.5 mg-acetaminophen tab PO 01/11/25 Unknown History 325 mg tablet lisinopril 10 mg tablet 10 mg PO DAILY 01/11/25 Unknown History Allergy/AdvReac Type Severity Reaction Status Date / Time codeine Allergy BLISTERS Verified 01/11/25 10:17 Surgical History Hx of right cataract extraction Hx of left cataract extraction Hx of hemorrhoidectomy Hx of inguinal hernia surgery History of quadruple bypass Hx of tonsillectomy Hx of colonoscopy History of transurethral resection of prostate Social History household members: spouse Smoking Status: Former smoker alcohol intake: never substance use type: does not use ROS ROS ED ROS Narrative Constitutional: Denies any fevers, chills, headaches Eyes: Denies change in vision double vision blurry vision Cardiovascular: Denies chest pain Respiratory: Denies shortness of breath Abdomen: Denies abdominal pain nausea vomiting diarrhea : Denies urinary symptoms Neurological: Denies numbness, weeks, tingling Musculoskeletal: Complains of left lower extremity pain from the knee down Skin: Denies any rashes or lesions EXAM Physical Exam Narrative Exam Narrative: General: Patient was lying in bed resting comfortably did not appear to be in acute distress Head: Atraumatic, normocephalic Eyes: PERRL bilaterally, EOMI bilaterally, no conjunctival injection noted Neck: Soft, supple, trachea midline Cardiovascular: Regular rate and rhythm Respiratory: Clear to auscultation bilaterally Abdomen: Soft, nondistended, diffuse tenderness to palpation no rebound or guarding on exam Musculoskeletal: Patient has tenderness palpation over the left lower extremity from the knee down compartments are soft and compressible Extremities: 2+ pitting edema in the bilateral lower extremities Neurological: Patient following commands knew he was at [facility] Skin: Warm, dry, no rashes or lesions noted Const Vital Signs: 01/11/25 10:17 01/11/25 10:43 01/11/25 11:15 Temperature 98 F Temperature Source Temporal Pulse Rate 137 H 84 Respiratory Rate 20 H 20 H Blood Pressure 138/112 H 136/64 H 72/57 L Blood Pressure Mean 120 88 63 Pulse Ox 91 Oxygen Delivery Method Room Air 01/11/25 11:18 01/11/25 11:30 01/11/25 11:45 Temperature Temperature Source Pulse Rate 93 91 89 Respiratory Rate 20 H 23 H 24 H Blood Pressure Blood Pressure Mean Pulse Ox Oxygen Delivery Method 01/11/25 12:00 01/11/25 12:11 01/11/25 12:15 Temperature Temperature Source Pulse Rate 94 89 Respiratory Rate 24 H 26 H Blood Pressure 67/50 L Blood Pressure Mean 57 Pulse Ox Oxygen Delivery Method 01/11/25 12:16 01/11/25 12:20 01/11/25 12:25 Temperature Temperature Source Pulse Rate 98 98 91 Respiratory Rate 24 H 25 H 26 H Blood Pressure 84/63 L 80/51 L 82/60 L Blood Pressure Mean 70 61 68 Pulse Ox 32 Oxygen Delivery Method 01/11/25 12:30 01/11/25 12:35 01/11/25 12:40 Temperature Temperature Source Pulse Rate 88 99 100 Respiratory Rate 24 H 23 H 26 H Blood Pressure 80/54 L 84/58 L 79/68 L Blood Pressure Mean 64 66 74 Pulse Ox Oxygen Delivery Method 01/11/25 12:45 01/11/25 12:50 01/11/25 12:55 Temperature Temperature Source Pulse Rate 94 96 98 Respiratory Rate 27 H 25 H 28 H Blood Pressure 92/74 86/63 L 87/56 L Blood Pressure Mean 82 73 68 Pulse Ox 54 Oxygen Delivery Method 01/11/25 13:00 01/11/25 14:44 Temperature 98 F Temperature Source Pulse Rate 102 H 104 H Respiratory Rate 29 H 22 H Blood Pressure 81/61 L 108/73 Blood Pressure Mean 69 84 Pulse Ox 92 Oxygen Delivery Method MDM MDM MDM Narrative Medical decision making narrative: Patient is 84-year-old male who presents to the emergency department chief complaint of left lower extremity pain. On the differential diagnose includes but not limited to DVT although do have low suspicion for this as he is chronically anticoagulated on warfarin will check an INR, ruptured AAA, bowel obstruction, anemia, pain secondary to edema. Once workup is obtained and reviewed he will be reevaluated. Will only give 1 L of IV fluid as there is concern for hypovolemic state. Patient's CBC reviewed and showed a lymphocyte of 2.6, hemoglobin is 9.9, platelet count had to be 82 he has a history of thrombocytopenia. Patient INR was noted 2.6, PTT 28.5. Patient anion gap of 20, creatinine elevated 2.16 indicating acute kidney injury. Patient's AST and ALT are 42 and 42 respectively proBNP elevated to 17,787. Patient lipase was noted to be normal at 29. Patient's urinalysis reviewed and showed no evidence of infection. Patient's x-ray of his tibia-fibula, knee, ankle reviewed by myself and by radiology which showed no acute fractures or dislocations. Patient's chest x-ray reviewed by myself by radiology and showed cardiomegaly with a small right pleural effusion noted. Patient CT abdomen pelvis IV contrast showed findings suggestive of CHF, liver steatosis cholelithiasis noted. Bilateral kidney stones with largest measuring 1.4 cm at the right renal pelvis with right hydronephrosis. Patient's EKG reviewed and showed atrial fibrillation with a rate of 102 bpm. Patient was given 40 mg IV Lasix. Patient case will be discussed with hospitalist. There is no identifiable source of infection at 2:04 PM therefore no indication for antibiotics and the patient's MAP has been above 65 therefore do not feel that he requires vasopressors at this point time. Discussed case with hospitalist Dr. Guzman who wants to discuss case with urologist Dr. Packer in regards to his hydronephrosis and evaluate the patient in the emergency department to determine placement in the hospital. He called me back and we discussed and that he will place him in the ICU and he will be placed on Lasix drip. Patient notified is agreeable to plan all questions were answered. Lab Data Labs: Laboratory Results - last 24 hr 01/11/25 01/11/25 10:30 13:36 WBC 2.6 L RBC 3.55 L Hgb 9.9 L Hct 32.4 L MCV 91.3 MCH 27.9 MCHC 30.6 L RDW Std Deviation 55.0 H RDW Coeff of Didier 16.3 H Plt Count 82 L MPV 11.0 Immature Gran % (Auto) 0.400 Neut % (Auto) 92.3 H Lymph % (Auto) 2.7 L [place] % (Auto) 4.6 Eos % (Auto) 0.0 Baso % (Auto) 0.0 Absolute Neuts (auto) 2.4 Absolute Lymphs (auto) 0.07 L Nucleated RBC % 0 Differential Comment SCANNED Platelet Estimate MOD DEC PT 28.5 H INR 2.6 APTT 34.7 Sodium 134 Potassium 4.5 Chloride 96 L Carbon Dioxide 18.1 L Anion Gap 20 H BUN 61 H Creatinine 2.16 H Estim Creat Clear Calc 26.63 L Est GFR (MDRD) Non-Af 29 L BUN/Creatinine Ratio 28.1 H Glucose 60 L Calcium 9.0 Total Bilirubin 1.30 AST 43 H ALT 32 Alkaline Phosphatase 61 [place] [address] H Total Protein 6.3 Albumin 3.6 Globulin 2.7 Albumin/Globulin Ratio 1.4 Lipase 29 Urine Color Yellow Urine Clarity Sl. Cloudy Urine pH 5.0 Ur Specific [place] 1.020 Urine Protein 100 H Urine Glucose (UA) Normal Urine Ketones Negative Urine Occult Blood 150 H Urine Nitrite Negative Urine Bilirubin Negative Urine Urobilinogen Normal Ur Leukocyte Esterase 100 H Urine RBC 5-10 SEEN Urine WBC 10-25 SEEN Ur Squamous Epith Cells 0-5 SEEN Ur Renal Epithelial Cell 0-5 SEEN Amorphous Sediment 1+ URATE Urine Bacteria 0 SEEN Hyaline Casts 5-10 SEEN Coarse Granular Casts 0-5 SEEN Urine Mucus 0 SEEN Radiography Diagnostic Testing: Clinical Impression(s) from Imaging Studies Abdomen/Pelvis CT 01/11/25 10:49 IMPRESSION: Chest findings suggestive of CHF. Correlate clinically. Liver steatosis. Cholelithiasis. Bilateral kidney stones with the largest measures 1.4 cm at the right renal pelvis. Mild right hydronephrosis. [facility] Ankle X-Ray 01/11/25 12:00 IMPRESSION: 1. No fracture. Mild degenerative change tibiotalar joint. Soft tissue swelling. Reading Location: [facility] Chest X-Ray 01/11/25 12:00 IMPRESSION: Cardiomegaly. Small right pleural effusion. Reading Location: [id number] Knee X-Ray 01/11/25 12:00 IMPRESSION: DEGENERATIVE OSTEOARTHROSIS. NO ACUTE FINDINGS. Reading Location: [id number] Tibia/Fibula X-Ray 01/11/25 12:00 IMPRESSION: NEGATIVE TIBIA AND FIBULA Reading Location: [id number] Discharge Plan Dx/Rx/DC Orders Clinical Impression: CHF (congestive heart failure), Generalized weakness, Atrial fibrillation Disposition Disposition: Acute Care Hospital [facility]
[2025-01-11 11:24] LABS: Lipase 29 U/L (13-75); Pro- Brain NATRIURETIC PEPTIDE 17787 pg/mL (<=1800)
[2025-01-11 11:34] LABS: Differential Comment SCANNED
[2025-01-11 11:35] LABS: AST(SGOT) 43 U/L (<=37); Alanine Aminotransfer ALT/SGPT 32 U/L (<=46); Albumin, Serum 3.6 g/dL (3.4-4.8); Alkaline Phosphatase 61 U/L (40-129); Anion Gap 20 (5-15); BUN 61 mg/dL (4-19); BUN/Creat Ratio 28.1 RATIO (10-20); Calcium,Total 9.0 mg/dL (7.6-11.0); Carbon Dioxide 18.1 mmol/L (21.0-32.0); Chloride 96 mmol/L (98-108); Estimated Creatinine Clearance 26.63 ml/min (50-250); Globulin 2.7 g/dL (2.2-4.2); Glucose 60 mg/dL (70-99); Potassium 4.5 mmol/L (3.3-5.1)
--- NOTE | 2025-01-11 12:00 | RAD_ITS ---
PROCEDURE: TIBIA FIBULA 2 VIEWS 01/11/2025 REASON FOR EXAM: PAIN TECHNIQUE: Procedure Code: RADTF Modality: DX Procedure: TIBIA FIBULA 2 VIEWS Laterality: Left COMPARISON: None FINDINGS: Bones: No fracture. No suspicious bone lesion. Joints: Normal alignment at the knee and ankle. Soft tissues: Soft tissues are unremarkable. Other: RAD/Tibia & Fibula 2 Views IMPRESSION: NEGATIVE TIBIA AND FIBULA Reading Location: [id number]
--- NOTE | 2025-01-11 12:00 | RAD_ITS ---
PROCEDURE: CHEST PA AND LATERAL 01/11/2025 REASON FOR EXAM: SOB TECHNIQUE: Procedure Code: RADCXR Modality: DX Procedure: CHEST PA AND LATERAL COMPARISON: None FINDINGS: Hardware: Status post median sternotomy for CABG Heart: Cardiomegaly Mediastinum: Tortuous aorta. Normal hilar structures. Lungs: Hypoinflated lungs. No focal consolidation. Blunted costophrenic angles concerning for small effusions [id number]. No pneumothorax. Bones: AC joint arthropathy. RAD/Chest PA and Lateral IMPRESSION: Cardiomegaly. Small right pleural effusion. Reading Location: [id number]
--- NOTE | 2025-01-11 12:00 | RAD_ITS ---
PROCEDURE: ANKLE MIN 3 VIEWS 01/11/2025 REASON FOR EXAM: PAIN TECHNIQUE: Procedure Code: RADANK Modality: DX Procedure: ANKLE MIN 3 VIEWS Laterality: Left COMPARISON: None FINDINGS: Bones: No fracture. Tiny calcaneal spur and calcaneal enthesophyte are present. Joints: Mild joint space narrowing anteriorly at the tibiotalar joint. Soft tissues: Soft tissue swelling. Other: Atherosclerosis of the arterial structures. RAD/Ankle min 3 Views IMPRESSION: 1. No fracture. Mild degenerative change tibiotalar joint. Soft tissue swell ing. Reading Location: [id number]
--- NOTE | 2025-01-11 12:00 | RAD_ITS ---
PROCEDURE: KNEE 1 OR 2 VIEWS 01/11/2025 REASON FOR EXAM: PAIN TECHNIQUE: Procedure Code: RADK Modality: DX Procedure: KNEE 1 OR 2 VIEWS Laterality: Left knee COMPARISON: None FINDINGS: Bones: No fracture seen. Joints: Moderate degree of joint space narrowing of the medial compartment of the knee joint. Effusion: No joint effusion. Soft tissues: Vascular calcification. Other: RAD/Knee 1 or 2 Views IMPRESSION: DEGENERATIVE OSTEOARTHROSIS. NO ACUTE FINDINGS. Reading Location: [id number]
[2025-01-11 13:42] LABS: Mucous, Urine 0 SEEN /hpf (<or=2+)
[2025-01-11 13:47] LABS: Color, Urine Yellow (Yellow); Glucose, Dipstick Normal (Normal); Ketone-Dipstick Negative (Negative); Leukocyte Esterase-Dipstick 100 /ul (Negative); Nitrite-Dipstick Negative (Negative); Occult Blood-Urine 150 /ul (Negative); Protein-Dipstick 100 mg/dl (Negative); Specific Gravity, Urine 1.020 (1.002-1.030); Urine Bilirubin Dipstick Negative (Negative)
[2025-01-11 13:55] LABS: Red Blood Cells-Urine 5-10 SEEN /hpf (0-5); Squamous Epithelial Cells - UA 0-5 SEEN /hpf (0-5)
--- NOTE | 2025-01-11 14:20 | PCM.HP.STD ---
HPI - General General Date of Admission: 01/11/25 Date of Service: 01/11/25 Chief Complaint: Worsening shortness of breath, leg swelling and weakness HPI Narrative HUA ADAN, is a 84 M who presented to [facility] ED on 01/11/2025 with worsening shortness of breath, leg swelling and weakness. Patient lives at home with his , daughter lives nearby. Medical history significant for very hard of hearing, prostate cancer s/p radiation therapy, CAD with CABG x 4, hypertension, hyperlipidemia, paroxysmal A-fib, DVT/PE on Coumadin, and type 2 diabetes mellitus. In the ED he was found to be in A-fib with RVR with rate to the 110s to 120s, hypotensive to the 80s over 60s, hypoxic requiring 4 L nasal cannula at rest to maintain appropriate oxygen saturations. Chest x-ray showed cardiomegaly with mild vascular congestion and small bilateral effusions. CT abdomen/pelvis showed just findings consistent with CHF, anasarca and soft tissues, bilateral kidney stones with largest 1.4 cm at right renal pelvis and right hydronephrosis, no other concerning findings. BNP greater than 17,000. CBC with WBC count 2.6, hemoglobin 9.9, platelet count 82. INR therapeutic at 2.6. BMP with creatinine 2.16, BUN 61, glucose 60. Patient was initially given IV fluids in the ED for hypotension but after further workup was given a dose of IV Lasix 40 mg. Hospitalist was then contacted for admission. I saw the patient at bedside in the ED. Patient is very hard of hearing so it is difficult to have any conversation with him. He was also anxious appearing and appeared somewhat confused and was consistently asking for his daughter. Will be admitted for further management. [facility] Medical History Abdominal aneurysm Loss of hearing Wears glasses Ambulates with cane Diabetes Arthritis Syncope Dietary restriction Former smoker Shortness of breath on exertion History of pain when walking Hypertension Cardiology follow-up encounter History of atrial fibrillation Back pain Pulmonary embolism Nocturia Prostate cancer Elevated PSA Home Medications ?Medication ?Instructions ?Recorded ?Last Taken ?Type hydrochlorothiazide 25 mg tablet 25 mg PO DAILY BP 01/21/18 01/11/25 History sitagliptin phosphate 100 mg 100 mg PO DAILY DAIBETES 01/21/18 01/11/25 History tablet (Januvia) metformin 500 mg tablet 750 mg PO BID DIABETES 10/19/23 01/11/25 History warfarin 1 mg tablet 4 mg PO SUMOTUTHFRSA 10/19/23 Unknown History dutasteride 0.5 mg capsule 0.5 mg PO DAILY 10/21/23 01/11/25 History finasteride 5 mg tablet 5 mg PO DAILY 10/21/23 12/29/23 History warfarin 4 mg tablet 2 mg PO WE 12/20/23 Unknown History atorvastatin 80 mg tablet 80 mg PO QHS cholesterol 01/11/25 01/10/25 History ferrous sulfate 325 mg (65 mg 325 mg PO DAILY supplement 01/11/25 01/11/25 History iron) tablet (Feosol) furosemide 20 mg tablet 20 mg PO DAILY edema 01/11/25 01/11/25 History glipizide 5 mg tablet, extended 5 mg PO DAILY 01/11/25 01/11/25 History release 24 hr hydrocodone 7.5 mg-acetaminophen 1 tab PO Q6H PRN pain 01/11/25 Unknown History 325 mg tablet lisinopril 10 mg tablet 10 mg PO DAILY bp 01/11/25 01/11/25 History mupirocin 2 % topical ointment 1 applic topical BID 01/11/25 Unknown History (Shellie) Allergy/AdvReac Type Severity Reaction Status Date / Time codeine Allergy BLISTERS Verified 01/11/25 10:17 Surgical History Hx of right cataract extraction Hx of left cataract extraction Hx of hemorrhoidectomy Hx of inguinal hernia surgery History of quadruple bypass Hx of tonsillectomy Hx of colonoscopy History of transurethral resection of prostate Social History household members: spouse Smoking Status: Former smoker alcohol intake: never substance use type: does not use ROS Review of Systems ROS Unobtainable: due to mental status Vital Signs Vital Signs Vital Signs: 01/11/25 10:17 01/11/25 10:43 01/11/25 11:15 Temperature 98 F Temperature Source Temporal Pulse Rate 137 H 84 Respiratory Rate 20 H 20 H Blood Pressure 138/112 H 136/64 H 72/57 L Blood Pressure Mean 120 88 63 Pulse Ox 91 Oxygen Delivery Method Room Air 01/11/25 11:18 01/11/25 11:30 01/11/25 11:45 Temperature Temperature Source Pulse Rate 93 91 89 Respiratory Rate 20 H 23 H 24 H Blood Pressure Blood Pressure Mean Pulse Ox Oxygen Delivery Method 01/11/25 12:00 01/11/25 12:11 01/11/25 12:15 Temperature Temperature Source Pulse Rate 94 89 Respiratory Rate 24 H 26 H Blood Pressure 67/50 L Blood Pressure Mean 57 Pulse Ox Oxygen Delivery Method 01/11/25 12:16 01/11/25 12:20 01/11/25 12:25 Temperature Temperature Source Pulse Rate 98 98 91 Respiratory Rate 24 H 25 H 26 H Blood Pressure 84/63 L 80/51 L 82/60 L Blood Pressure Mean 70 61 68 Pulse Ox 32 Oxygen Delivery Method 01/11/25 12:30 01/11/25 12:35 01/11/25 12:40 Temperature Temperature Source Pulse Rate 88 99 100 Respiratory Rate 24 H 23 H 26 H Blood Pressure 80/54 L 84/58 L 79/68 L Blood Pressure Mean 64 66 74 Pulse Ox Oxygen Delivery Method 01/11/25 12:45 01/11/25 12:50 01/11/25 12:55 Temperature Temperature Source Pulse Rate 94 96 98 Respiratory Rate 27 H 25 H 28 H Blood Pressure 92/74 86/63 L 87/56 L Blood Pressure Mean 82 73 68 Pulse Ox 54 Oxygen Delivery Method 01/11/25 13:00 Temperature Temperature Source Pulse Rate 102 H Respiratory Rate 29 H Blood Pressure 81/61 L Blood Pressure Mean 69 Pulse Ox Oxygen Delivery Method Weight Weight: 79.2 kg Body Mass Index (BMI) 24.3 Physical Exam Const alert Constitutional Narrative: Elderly male, very hard of hearing, alert but somewhat confused appearing and consistently asking for his daughter, not able to answer any questions appropriately given difficulty in hearing, otherwise sitting back in bed. Orientation / Consciousness: confused HEENT normocephalic, head/scalp atraumatic, hearing grossly normal bilaterally, nasal mucous membranes and turbinates normal and moist oral mucous membranes Eyes PERRL, EOMs intact bilaterally and conjunctivae normal Neck full ROM Chest inspection of chest normal Resp normal respiratory effort and no use of accessory muscles Resp Narrative: Breathing comfortably on 4 L nasal cannula at rest. Diminished breath sounds in bilateral lung bases with mild crackles noted in mid to lower lung zones. No wheezing noted. Cardio no murmurs and peripheral pulses 2+ throughout Cardio Narrative: A-fib with RVR. GI normal to inspection, nondistended, normoactive bowel sounds, soft to palpation, non-tender and non-distended Back/Spine normal ROM Extremity Extremity Narrative: +4 lower extremity pitting edema bilaterally. Moderate tenderness to palpation noted. No erythema noted. Skin no rashes or lesions noted Neuro No moves all extremities Psych Mood & Affect: anxious Results Lab / Micro Data 01/11/25 10:30 01/11/25 10:30 Labs: Laboratory Results - last 24 hr 01/11/25 10:30: WBC 2.6 L, RBC 3.55 L, Hgb 9.9 L, Hct 32.4 L, MCV 91.3, MCH 27.9, MCHC 30.6 L, RDW Std Deviation 55.0 H, RDW Coeff of Didier 16.3 H, Plt Count 82 L, MPV 11.0, Immature Gran % (Auto) 0.400, Neut % (Auto) 92.3 H, Lymph % (Auto) 2.7 L, [place] % (Auto) 4.6, Eos % (Auto) 0.0, Baso % (Auto) 0.0, Absolute Neuts (auto) 2.4, Absolute Lymphs (auto) 0.07 L, Nucleated RBC % 0, Differential Comment SCANNED, Platelet Estimate MOD DEC, PT 28.5 H, INR 2.6, APTT 34.7, Sodium 134, Potassium 4.5, Chloride 96 L, Carbon Dioxide 18.1 L, Anion Gap 20 H, BUN 61 H, Creatinine 2.16 H, Estim Creat Clear Calc 26.63 L, Est GFR (MDRD) Non-Af 29 L, BUN/Creatinine Ratio 28.1 H, Glucose 60 L, Calcium 9.0, Total Bilirubin 1.30, AST 43 H, ALT 32, Alkaline [place]atase 61, [place] [address] H, Total Protein 6.3, Albumin 3.6, Globulin 2.7, Albumin/Globulin Ratio 1.4, Lipase 29 01/11/25 13:36: Urine Color Yellow, Urine Clarity Sl. Cloudy, Urine pH 5.0, Ur Specific [place] 1.020, Urine Protein 100 H, Urine Glucose (UA) Normal, Urine Ketones Negative, Urine Occult Blood 150 H, Urine Nitrite Negative, Urine Bilirubin Negative, Urine Urobilinogen Normal, Ur Leukocyte Esterase 100 H, Urine RBC 5-10 SEEN, Urine WBC 10-25 SEEN, Ur Squamous Epith Cells 0-5 SEEN, Ur Renal Epithelial Cell 0-5 SEEN, Amorphous Sediment 1+ URATE, Urine Bacteria 0 SEEN, Hyaline Casts 5-10 SEEN, Coarse Granular Casts 0-5 SEEN, Urine Mucus 0 SEEN Imaging Radiology Impression Abdomen/Pelvis CT 01/11/25 10:49 IMPRESSION: Chest findings suggestive of CHF. Correlate clinically. Liver steatosis. Cholelithiasis. Bilateral kidney stones with the largest measures 1.4 cm at the right renal pelvis. Mild right hydronephrosis. Reading Location: [id number] Ankle X-Ray 01/11/25 12:00 IMPRESSION: 1. No fracture. Mild degenerative change tibiotalar joint. Soft tissue swelling. Reading Location: [id number] Chest X-Ray 01/11/25 12:00 IMPRESSION: Cardiomegaly. Small right pleural effusion. Reading Location: [id number] Knee X-Ray 01/11/25 12:00 IMPRESSION: DEGENERATIVE OSTEOARTHROSIS. NO ACUTE FINDINGS. Reading Location: [id number] Tibia/Fibula X-Ray 01/11/25 12:00 IMPRESSION: NEGATIVE TIBIA AND FIBULA Reading Location: [id number] Assessment & Plan Assessment/Plan (1) Acute HFrEF (heart failure with reduced ejection fraction): (2) Atrial fibrillation: (3) Generalized weakness: PLAN: Plan Patient is an 84-year-old male who presented to [facility] ED on 01/11/2025 with worsening shortness of breath, leg swelling and weakness. 1. Acute HFrEF with hypoxia and hypotension ? Admit under inpatient status to ICU. Cardiology consulted. Significant lower extremity edema and generalized volume overload on exam noted. Chest x-ray with mild vascular congestion and small bilateral effusions. BNP greater than 70,000. No prior history of HFrEF. Echo on admit showed EF 35%, moderate global hypokinesis of the LV, moderately dilated RV and mild global RV systolic dysfunction, severely enlarged LA and RA, no significant valvular disease. Suspect new onset HFrEF is primarily due to A-fib with RVR as below but appreciate cardiology recommendations. Will treat with IV Lasix drip at 10 mL/h overnight and closely monitor urine output. Will then transition to IV Lasix 40 mg twice daily tomorrow. Patient was in the 80s over 60s in the ED so we will need to monitor blood pressure closely. Continue cardiac monitoring. Will hold off on rate control for A-fib as increased rate is likely needed to aid with adequate perfusion in setting of reduced ejection fraction. 2. Suspected ANTHONY ? Creatinine 2.16 on admit, BUN 61. Last creatinine was 1.77 in 2023, was 1.0-1.2 prior to that in 2021. Suspect mild prerenal ANTHONY due to cardiorenal syndrome from acute HFrEF as above. Treated with IV Lasix as above, monitor daily BMP and urine output. 3. Acute metabolic encephalopathy ? Patient very hard of hearing at baseline and had difficulty communicating in the ED. However, he appeared anxious and on arrival to the ICU was shouting out for his daughter consistently. Will monitor closely and treat as above. Avoid sedating medications as able. 4. Paroxysmal A-fib with RVR on Coumadin, history of CAD with CABG, hypertension, hyperlipidemia, history of VTE ? Does not follow with cardiology here, unclear if he follows with a family law specialist. Remote history of CABG noted. INR 2.6 on admit, in therapeutic range. Treated with IV Lasix as above. Continue home warfarin and statin. Holding home lisinopril and hydrochlorothiazide given hypotension and ANTHONY as above. 5. Pancytopenia ? Hemoglobin 9.9, WBC count 2.6, platelet count 82 on admit. Last CBC in our system is from 11/2023; hemoglobin 12.8, WC count 12.7, platelet count 130. No history of GI bleed noted. Suspect hemodilution due to significant volume overload as above. Follow-up a.m. CBC. 6. Acute on chronic debility with significant hearing loss ? PT/OT/case management consulted. Patient lives at home with his and daughter notes that his has dementia, and patient has had fairly rapid decline over the past few weeks. Suspect patient will require SNF placement at discharge. Appreciate therapy recommendations. 7. Type 2 diabetes mellitus with mild hypoglycemia ? Blood glucose 60 on admit. A1c 6.2%. Home regimen of glipizide, metformin and sitagliptin. Will treat with sliding scale insulin with meals while inpatient. Would recommend discontinuing glipizide on discharge and may not need metformin or sitagliptin either. 8. History of prostate cancer s/p radiation therapy ? Follows with urology and radiation oncology. Completed radiation therapy in February. Had recent 9-month follow-up visit with radiation oncology and was noted to be doing well. Most recent PSA normal. Continue home finasteride. 9. Kidney stones ? CT abdomen pelvis on admit showed bilateral kidney stones with largest measuring 1.4 cm at the right renal pelvis. Mild right hydronephrosis was called as well. I discussed with Dr. Marcum over the phone prior to admission who looked at the image and noted no significant obstruction and said patient could be seen in the outpatient setting. DVT prophylaxis: Not indicated, on warfarin CODE STATUS: Full code, unverified. 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 Unable to obtain CODE STATUS for patient given his encephalopathy and being very hard of hearing as above. Expected disposition: TBD Total clinical time spent by myself addressing the patient's medical issues, reviewing all the data, and collaborating with patient's care team: 85 minutes. Charges/Coding Visit Charges Inpatient E&M: 41394 Init Hosp L3
--- NOTE | 2025-01-11 14:57 | ECHOD_ITS ---
Reason For Study Left Ventricle Normal LV size. The left ventricular ejection fraction is 35 %. There is moderate global hypokinesis of the left ventricle. Right Ventricle Moderately dilated right ventricle. Mild global right ventricular systolic dysfunction. Atria The left atrium is severely enlarged. The right atrium is severely enlarged. Mitral Valve There is moderate mitral annular calcification. Moderate (2+) anteriorly directed mitral valve insufficiency. Tricuspid Valve Normal tricuspid valve. Moderate (2+) tricuspid valve insufficiency. Pulmonary artery systolic pressure is 28 mmHg. Aortic Valve Trisinus/trileaflet aortic valve. Pulmonic Valve Normal pulmonic valve. Great Vessels Moderately calcified aortic root. The pulmonary artery is normal size. The inferior vena cava is dilated. Pericardium/Pleural No pericardial effusion. MMode/2D Measurements & Calculations LVIDd: 4.6 cm IVSd: 1.0 cm LVOT diam: 2.3 cm LVIDs: 3.4 cm LVPWd: 1.0 cm LVOT area: 4.1 cm2 RVDd: 4.2 cm FS: 26.3 % Ao root diam: 3.3 cm LAV(MOD-bp): 125.2 ml LVAd ap4: 27.1 cm2 LAV(MOD-bp) Indexed: 63.0 ml/m2 LVLd ap4: 7.8 cm LAV(MOD-sp2): 112.3 ml EDV(MOD-sp4): 79.0 ml LAV(MOD-sp4): 123.0 ml EDV(sp4-el): 79.9 ml LVAs ap4: 22.3 cm2 LVLs ap4: 7.6 cm ESV(MOD-sp4): 53.5 ml ESV(sp4-el): 55.1 ml EF(MOD-sp4): 32.3 % EF(sp4-el): 31.1 % SV(MOD-sp4): 25.5 ml SV(MOD-sp2): 30.2 ml LVAd ap2: 31.6 cm2 LVLd ap2: 8.0 cm SI(MOD-sp4): 12.8 ml/m2 SI(MOD-sp2): 15.2 ml/m2 EDV(MOD-sp2): 104.8 ml EDV(sp2-el): 106.3 ml LVAs ap2: 24.7 cm2 LVLs ap2: 7.0 cm ESV(MOD-sp2): 74.7 ml ESV(sp2-el): 74.2 ml EF(MOD-sp2): 28.8 % SV(sp4-el): 24.8 ml LA A4 area: 34.7 cm2 LA dimension(2D): 5.2 cm TAPSE: 1.4 cm RA A4 area: 30.2 cm2 Doppler Measurements & Calculations MV E max kayley: 96.5 cm/sec Ao V2 max: 144.6 cm/sec LV V1 max: 62.2 cm/sec Ao max P.4 mmHg LV V1 max P.6 mmHg Ao V2 mean: 107.9 cm/sec LV V1 mean P.82 mmHg Ao mean P.0 mmHg LV V1 mean: 42.2 cm/sec Ao V2 VTI: 17.5 cm LV V1 VTI: 7.2 cm AV (velocity ratio): 0.41 NELLY(I,D): 1.7 cm2 NELLY(V,D): 1.8 cm2 MR max kayley: 385.6 cm/sec SV(LVOT): 29.6 ml PA V2 max: 65.2 cm/sec MR max P.7 mmHg MR mean kayley: 305.9 cm/sec MR mean P.5 mmHg MR VTI: 74.8 cm TR max kayley: 245.3 cm/sec TR max P.1 mmHg ECHO/Echo Complete Interpretation Summary The left ventricular ejection fraction is 35 %. Normal LV size. There is moderate global hypokinesis of the left ventricle. Ordering Physician: Vivek Valverde Performed By:
--- NOTE | 2025-01-11 16:09 | ED.RN ---
Report called to ICU
[2025-01-11] MEDS: Furosemide 500 MG in Empty Viaflex 50 mL 1 EACH CONT INF (19:45)
[2025-01-11 20:26] LABS: Allen Test Positive; Base Excess -18 mmol/L (-2 to +2); FI02 5.0; PO2 114 mmHG (75-100); SITE R Radial; SO2 98 % (94-98); Time Given 20:23:05
[2025-01-11] MEDS: Dextrose 5%/0.9% NaCl 1,000 ML 100 ML IV (21:45)
[2025-01-11] MEDS: Norepinephrine 8 MG in 0.9% Normal Saline (250mL Bag) 242 ML 9.4 MG CONT INF (22:15)
--- NOTE | 2025-01-11 22:21 | NURSING ---
Jhon tripp called at 2205 d/t HR quickly dropping. HR down to the 20s, atropine 1 mg IVP given. 2 more amps D50 given d/t known hypoglycemia. HR continued to drop with very long pauses. Epi 1 mg IVP given at 220. Dr. Kauffman at bedside, 1 more 250 mL D10 bag given. 2 amps bicarb pushed IV. Patient agonally breathing, intubated at 2214 with #7.5 ETT, 22 @ lip. Bilateral breath sounds noted, positive color change. Levophed gtt started. 16 Fr OG placed.
--- NOTE | 2025-01-11 22:30 | RAD_ITS ---
PROCEDURE: CHEST 1 VIEW (PORTABLE) 01/11/2025 REASON FOR EXAM: ETT AND OG PLACEMENT TECHNIQUE: Frontal view of the chest. COMPARISON: Earlier same day. FINDINGS: Endotracheal tube tip projects 4.8 cm above the edin. Enteric tube courses midline extending below the diaphragm, terminating appropriately in the left upper abdomen in the expected location of the stomach. Cardiomegaly. Probable small bibasilar layering pleural effusions, greater on the right. No pneumothorax. Evidence of CABG with sternotomy wires and multiple mediastinal surgical clips. RAD/Chest 1 View (Portable) IMPRESSION: Endotracheal tube tip 4.8 cm above the edin. Enteric tube terminates appropriately within the stomach. Reading Location: [id number]
--- NOTE | 2025-01-11 22:35 | PN.HOSP_ITS ---
Hospitalist Note CODE BLUE note: Patient at 10:08 PM with onset bradycardia eventually progressing to asystole despite atropine dosing with then CODE BLUE initiated. Patient administered dextrose amp x 2 and epinephrine x 1 with ROSC. Patient intubated as noted below and full set of labs obtained including CBC, CMP, mag, Phos, cardiac enzymes, coags as well as cardiac enzymes. EKG obtained with evidence of PAF/flutter with RVR with no acute evidence of ischemia. Given recent hypoglycemic presentation patient transition to dextrose 10%, bicarb amp x 2 a dministered as well as 2 additional amps of dextrose prior to obtaining the dextrose 10% drip. Patient also initiated on norepinephrine. Once patient was clinically stabilized chest x-ray requested. Patient family also contacted and updated on current events. Intubation Note: Patient with evidence of respiratory and/or impending distress. Medications administered: [] ETT size: [] Patient intubated in standard fashion with visualization of the vocal cords and passage of the ETT. Positioning verified with auscultation. Post-intubation CXR requested. Patient with transition to ICU with consultation to ICU physician. Will maintain patient on AC w/ []. Will continue sedation w/ []. Will obtain AM CXR repeat.
[2025-01-11 22:47] LABS: Hematocrit 31.0 % (40-54); Hemoglobin 8.9 g/dL (13.0-16.5); Immature Granulocytes Count 0.020 X10^3/uL (0.0-0.0); Mean Corp Hgb Conc 28.7 g/dL (32-36); Mean Corpuscular Volume 98.1 fL (80-94); Mean Platelet Vol. 12.1 fl (6.2-12.0); NRBC Flagged by Analyzer 0 % (0-5); POSITIVE COUNT YES; POSITIVE DIFFERENTIAL YES; POSITIVE MORPHOLOGY YES; Platelet Count 61 K/mm3 (150-450); RBC Distribution Width CV 16.3 % (11.6-14.6); RBC Distribution Width SD 59.9 fl (35.1-43.9); Red Blood Count 3.16 M/mm3 (4.6-6.2); White Blood Count 3.9 K/mm3 (4.4-11.0)
[2025-01-11] MEDS: Sodium Chloride 19.25 MEQ in Dextrose 10%-Water 250 ML 20 MEQ IV (22:48)
[2025-01-11] MEDS: fentaNYL drip 100 ML 5 MCG CONT INF (22:50)
[2025-01-11 22:54] LABS: Allen Test Positive; Base Excess -22 mmol/L (-2 to +2); FI02 100.0; PEEP 5; PO2 321 mmHG (75-100); RR 14; SITE R Radial; SO2 100 % (94-98); Time Given 22:51:44
[2025-01-11] MEDS: 0.9% Saline Lock 10 ML Syringe IV ×2 (23:11→23:12)
[2025-01-11] MEDS: Sodium Bicarbonate 8.4% 50 ML Syringe 50 MEQ IV ×2 (23:14→23:15)
[2025-01-11 23:29] LABS: Prothrombin Time (Protime)PT. 41.2 SECONDS (11.7-14.9)
[2025-01-11 23:30] LABS: Magnesium 2.1 mg/dL (1.5-2.2); Partial Thromboplast Time 60.3 Seconds (24.1-36.2)
[2025-01-11 23:33] LABS: AST(SGOT) 97 U/L (<=37); Alanine Aminotransfer ALT/SGPT 48 U/L (<=46); Albumin, Serum 2.6 g/dL (3.4-4.8); Alkaline Phosphatase 48 U/L (40-129); Anion Gap 27 (5-15); BUN 61 mg/dL (4-19); BUN/Creat Ratio 25.1 RATIO (10-20); Calcium,Total 7.5 mg/dL (7.6-11.0); Carbon Dioxide 9.5 mmol/L (21.0-32.0); Chloride 93 mmol/L (98-108); Estimated Creatinine Clearance 22.95 ml/min (50-250); Globulin 2.1 g/dL (2.2-4.2); Glucose 388 mg/dL (70-99); Potassium 5.6 mmol/L (3.3-5.1); Troponin T High Sensitivity 275 ng/L (<=22)
[2025-01-11 23:53] LABS: Differential Indicated SCAN CRITERIA MET
[2025-01-11] MEDS: Vasopressin 20 UNITS in 0.9% Normal Saline (50mL Bag) 24 ML 3 UNITS CONT INF (23:54)
[2025-01-12] VITALS (7 sets, daily range): BP systolic 61–91; BP diastolic 35–79; PULSE 108–118; RESP 17–30
[2025-01-12] MEDS: Phenylephrine 10 MG in 0.9% Normal Saline (250mL Bag) 249 ML 15 MG CONT INF
--- NOTE | 2025-01-12 00:15 | CON.PCM.CC_ITS ---
HPI Consult Data Date of Consult: 01/12/25 HPI Narrative HPI Narrative: Mr. Proctor is an 84 year-old gentleman with prostate cancer s/p XRT, CAD s/p CABG, chronic systolic heart failure (EF 35%), HTN, HLD, Afib, PE/DVT on coumadin, CKD, DM2, and chronic anemia who presents to the ICU after a cardiac arrest. He initially presented earlier in the day with lower extremity swelling, and he was found to be hypoxic requiring 4L NC, hypotensive 80s/60s, and in Afib with RVR with HR 110-120s. CXR revealed pulmonary vascular congestion, and CT A/P was remarkable for nephrolithiasis c/b right hydronephrosis. Laboratory data was remarkable for H/H 9/32, Plt 82, INR 4.2, HCO3 18.1, and Cr 2.16. He was admitted for a CHF exacerbation, but earlier this evening he had a bradycardic episode to asystole requiring the initiation of a Code Blue - two rounds of epinephrine were pushed prior to ROSC. Blood sugar was 16. He was intubated and sedated, and on my examination, he is now on maximum dose levophed and a D10 drip. Repeat laboratory data is remarkable for Na 130, K 5.6, HCO3 9.5, Cr 2.43, and a lactate of 14. [facility] Medical History Abdominal aneurysm Loss of hearing Wears glasses Ambulates with cane Diabetes Arthritis Syncope Dietary restriction Former smoker Shortness of breath on exertion History of pain when walking Hypertension Cardiology follow-up encounter History of atrial fibrillation Back pain Pulmonary embolism Nocturia Prostate cancer Elevated PSA Home Medications ?Medication ?Instructions ?Recorded ?Last Taken ?Type hydrochlorothiazide 25 mg tablet 25 mg PO DAILY BP 11/3001/11/25 History sitagliptin phosphate 100 mg 100 mg PO DAILY DAIBETES 01/21/18 01/11/25 History tablet (Januvia) metformin 500 mg tablet 750 mg PO BID DIABETES 10/1801/11/25 History warfarin 1 mg tablet 4 mg PO SUMOTUTHFRSA 4 Unknown History dutasteride 0.5 mg capsule 0.5 mg PO DAILY 10/21/23 History finasteride 5 mg tablet 5 mg PO DAILY 10/21/2312/28 History warfarin 4 mg tablet 2 mg PO WE 12/20/23 Unknown History atorvastatin 80 mg tablet 80 mg PO QHS cholesterol 01/10/25 History ferrous sulfate 325 mg (65 mg 325 mg PO DAILY suppleme nt 01/11/25 01/11/25 History iron) tablet (Feosol) furosemide 20 mg tablet 20 mg PO DAILY edema 5 01/11/25 History glipizide 5 mg tablet, extended 5 mg PO DAILY 01/11/25 01/11/25 History release 24 hr hydrocodone 7.5 mg-acetaminophen 1 tab PO Q6H PRN pain 01/11/25 Unknown History 325 mg tablet lisinopril 10 mg tablet 10 mg PO DAILY bp 01/11/25 1 History mupirocin 2 % topical ointment 1 applic topical BID Unknown History ([facility]) Allergy/AdvReac Type Severity Reaction Status Date / Time codeine Allergy BLISTERS Verified 01/11/25 10:17 Surgical History Hx of right cataract extraction Hx of left cataract extraction Hx of hemorrhoidectomy Hx of inguinal hernia surgery History of quadruple bypass Hx of tonsillectomy Hx of colonoscopy History of transurethral resection of prostate Social History household members: spouse Smoking Status: Former smoker alcohol intake: never substance use type: does not use ROS ROS Narrative Intubated and Sedated Objective Data Objective Data Vital Signs: Vital Signs Last response 3 Temperature 36.6 C 01/11/25 17:00 Temperature Source Temporal 01/11/25 17:00 Pulse Rate 112 H 01/11/25 23:15 Respiratory Rate 21 H 01/11/25 23:15 Respiratory Effort Normal, Non-Labored 01/11/25 20:00 Respiratory Depth Normal 01/11/25 20:00 Respiratory Pattern Tachypnea 01/11/25 23:15 Blood Pressure 88/47 L 01/11/25 23:30 Blood Pressure Mean 60 01/11/25 23:30 Blood Pressure Source Monitor 01/11/25 23:30 Blood Pressure Position Semi-Fowlers 01/11/25 18:00 Blood Pressure Location Left Arm 01/11/25 18:00 Pulse Ox 100 01/11/25 23:15 Oxygen Delivery Method Mechanical Ventilator 01/11/25 23:00 Oxygen Flow Rate (L/min) 5 01/11/25 20:00 Fraction of Inspired Oxygen (FIO2) 60 01/11/25 23:15 I&O: I&O Last 24 Hours 3 01/11/25 01/11/25 01/12/25 11:59 23:59 11:59 Intake Total 1638.90 / 1638.90 Balance 1638.90 / 1638.90 I&O: Total Stay 3 01/11/25 10:16 thru 01/11/25 23:30 Intake Total 1638.90 Balance 1638.90 Current Meds Ordered / Administered: Current meds ordered / Administered 3 Generic Name Dose Route Start Last Admin Trade Name Freq PRN Reason Stop Dose Admin Acetaminophen 650 mg 01/11/25 17:03 Acetaminophen 325 Mg Tablet PO Q6H PRN PRN Pain 1-10 Or Fever>100.7 Atorvastatin Calcium 40 mg 01/12/25 10:00 Atorvastatin Calcium 40 Mg Tablet PO DAILY [facility] Chlorhexidine Gluconate 15 ml 01/12/25 10:00 Chlorhexidine 15 Ml PO BID [facility] Ferrous Sulfate 325 mg 01/12/25 12:00 Ferrous Sulfate 325 Mg Tablet PO DAILY@1200 [facility] Finasteride 5 mg 01/12/25 10:00 Finasteride 5 Mg Tablet PO DAILY MARGARET Furosemide 40 mg 01/12/25 10:00 Furosemide 40 Mg/4 Ml Vial IV BIDLX MARGARET Protocol Glucagon 1 mg 01/11/25 17:03 Glucagon 1 Mg/Ml Syringe IM X1 PRN Hypoglycemia Protocol Furosemide 500 mg/ N/A 50 mls @ 1 mls/hr 01/11/25 17:03 01/11/25 21:10 CONT INF 01/12/25 04:00 0 mg/hr .Q50H MARGARET 0 mls/hr 10 MG/HR Infusion Dextrose 250 mls @ 0 mls/hr 01/11/25 17:03 01/11/25 21:45 Dextrose 10%-Water IV Infused .Q0M PRN Infusion HYPOGLYCEMIA Protocol As Directed Sodium Chloride 19.25 meq/ 254.8125 mls @ 20 mls/hr 01/11/25 22:00 10/30/25 22:48 Dextrose IV 20 mls/hr .[id number] [facility] Administration Fentanyl 100 mls @ 5 mls/hr 01/11/25 22:20 01/11/25 22:50 CONT INF 50 mcg/hr UD MARGARET 5 mls/hr Protocol Administration 50 MCG/HR Norepinephrine Bitartrate 8 mg 250 mls @ 9.375 mls/hr 01/11/25 22:20 01/11/25 23:30 / Sodium Chloride CONT INF 15 mcg/min .[id number] MARGARET 28.1 mls/hr Protocol Titration 5 MCG/MIN Pantoprazole Sodium 40 mg/ 100 mls @ 300 mls/hr 01/12/25 10:00 Sodium Chloride IV Q24 [facility] Vasopressin 20 units/ Sodium 25 mls @ 3 mls/hr 01/11/25 23:25 01/11/25 23:54 Chloride CONT INF 0.04 units/min .Q8H20M MARGARET 3 mls/hr 0.04 UNITS/MIN Administration Phenylephrine HCl 10 mg/ 250 mls @ 15 mls/hr 01/11/25 23:25 Sodium Chloride CONT INF .[id number] [facility] Protocol 10 MCG/MIN Insulin Human Lispro 0 unit 01/11/25 17:03 01/11/25 21:33 Insulin Lispro 100 Unit/Ml Insuln.Pen SC Not Given ACHS [facility] Protocol Melatonin 3 mg 01/11/25 17:03 Melatonin 3 Mg Tablet PO QHS PRN PRN INSOMNIA Ondansetron HCl 4 mg 01/11/25 17:03 Ondansetron 4 Mg/2 Ml Vial IV Q8H PRN PRN NAUSEA/VOMITING Sodium Chloride 10 - 40 ml 01/11/25 17:59 01/11/25 23:12 0.9% Saline Lock 10 Ml Syringe IV 30 ml UD PRN Administration SALINE FLUSH Warfarin Sodium 4 mg 01/12/25 17:00 Warfarin (Pbkc) 4 Mg Tablet PO SuMoTuThFrSa@1700 [facility] Warfarin Sodium 2 mg 01/17/25 17:00 Warfarin (Pbkc) 2 Mg Tablet PO We@1700 [facility] Physical Exam Narrative GEN: INTUBATED AND SEDATED HEENT: PERRLA; EOMI; anicteric NECK: No TM RESP: CTAB CV: TACHCARDIC; IRREGULARLY IRREGULAR ABD: NT, ND, ABS x 4 EXT: -c/c; 1-2+ PITTING EDEMA NEURO: DEFERRED Lab / Micro Data 01/11/25 22:30 01/11/25 22:30 Labs: Laboratory Results - last 24 hr 01/11/25 10:30: WBC 2.6 L, RBC 3.55 L, Hgb 9.9 L, Hct 32.4 L, MCV 91.3, MCH 27.9, MCHC 30.6 L, RDW Std Deviation 55.0 H, RDW Coeff of Didier 16.3 H, Plt Count 82 L, MPV 11.0, Immature Gran % (Auto) 0.400, Neut % (Auto) 92.3 H, Lymph % (Auto) 2.7 L, Glascock % (Auto) 4.6, Eos % (Auto) 0.0, Baso % (Auto) 0.0, Absolute Neuts (auto) 2.4, Absolute Lymphs (auto) 0.07 L, Nucleated RBC % 0, Differential Comment SCANNED, Platelet Estimate MOD DEC, PT 28.5 H, INR 2.6, APTT 34.7, Sodium 134, Potassium 4.5, Chloride 96 L, Carbon Dioxide 18.1 L, Anion Gap 20 H, BUN 61 H, Creatinine 2.16 H, Estim Creat Clear Calc 26.63 L, Est GFR (MDRD) Non- Af 29 L, BUN/Creatinine Ratio 28.1 H, Glucose 60 L, Calcium 9.0, Total Bilirubin 1.30, AST 43 H, ALT 32, Alkaline Phosphatase 61, [place] [address] H, Total Protein 6.3, Albumin 3.6, Globulin 2.7, Albumin/Globulin Ratio 1.4, Lipase 29 01/11/25 13:36: Urine Color Yellow, Urine Clarity Sl. Cloudy, Urine pH 5.0, Ur Specific Childs 1.020, Urine Protein 100 H, Urine Glucose (UA) Normal, Urine Ketones Negative, Urine Occult Blood 150 H, Urine Nitrite Negative, Urine Bilirubin Negative, Urine Urobilinogen Normal, Ur Leukocyte Esterase 100 H, Urine RBC 5-10 SEEN, Urine WBC 10-25 SEEN, Ur Squamous Epith Cells 0-5 SEEN, Ur Renal Epithelial Cell 0-5 SEEN, Amorphous Sediment 1+ URATE, Urine Bacteria 0 SEEN, Hyaline Casts 5-10 SEEN, Coarse Granular Casts 0-5 SEEN, Urine Mucus 0 SEEN 01/11/25 21:24: POC Glucose 26 L* 01/11/25 22:00: POC Glucose 149 H 01/11/25 22:30: WBC 3.9 L, RBC 3.16 L, Hgb 8.9 L, Hct 31.0 L, MCV 98.1 H D, MCH 28.2, MCHC 28.7 L D, RDW Std Deviation 59.9 H, RDW Coeff of Didier 16.3 H, Plt Count 61 L, MPV 12.1 H, Immature Gran % (Auto) 0.500, Neut % (Auto) 85.8 H, L ymph % (Auto) 6.7 L, Glascock % (Auto) 6.7, Eos % (Auto) 0.0, Baso % (Auto) 0.3, Absolute Neuts (auto) 3.3, Absolute Lymphs (auto) 0.26 L, Nucleated RBC % 0, PT 41.2 H, INR 4.2 H*, APTT 60.3 H, Sodium 130 L, Potassium 5.6 H, Chloride 93 L, C arbon Dioxide 9.5 L*, Anion Gap 27 H, BUN 61 H, Creatinine 2.43 H, Estim Creat Clear Calc 22.95 L, Est GFR (MDRD) Non-Af 25 L, BUN/Creatinine Ratio 25.1 H, G lucose 388 H, Lactic Acid 14.0 H*, Calcium 7.5 L, Phosphorus 6.1 H, Magnesium 2.1, Total Bilirubin 1.10, AST 97 H, ALT 48 H, Alkaline Phosphatase 48, Troponin T High Sens 275 H*, Total Protein 4.7 L, Albumin 2.6 L, Globulin 2.1 L, Albumin/Globulin Ratio 1.2, POC Glucose 307 H 01/11/25 : Hemoglobin A1c 6.2 H ABG Data ABG results: ABG 01/11/25 01/11/25 20:20 22:49 Specimen Type ART ART Sample Site R Radial R Radial pH 7.32 L 7.07 L* Bicarbonate Actual 8.1 L 8.2 L Total CO2 9 9 Base Excess -18 L -22 L O2 Saturation 98 100 H O2 % 5.0 100.0 ABG pCO2 15.9 L* 28.2 L ABG pO2 114 H 321 H* Delbert Test Positive Positive Respiration Rate 14 O2 Delivery Device Cannula Adult Vent Vent Mode Not entered AC Tidal Volume 450.0 POC PEEP 5 Crit Call To/Read Back Yes Yes Blood Gas Notified Whom Dr. Daly Kauffman Blood Gas Notified Time 20:23:05 22:51:44 Imaging Radiology Impression Abdomen/Pelvis CT 01/11/25 10:49 IMPRESSION: Chest findings suggestive of CHF. Correlate clinically. Liver steatosis. Cholelithiasis. Bilateral kidney stones with the largest measures 1.4 cm at the right renal pelvis. Mild right hydronephrosis. Reading Location: [facility] Ankle X-Ray 01/11/25 12:00 IMPRESSION: 1. No fracture. Mild degenerative change tibiotalar joint. Soft tissue swelling. Reading Location: [facility] Chest X-Ray 01/11/25 12:00 IMPRESSION: Cardiomegaly. Small right pleural effusion. Reading Location: [id number] Knee X-Ray 01/11/25 12:00 IMPRESSION: DEGENERATIVE OSTEOARTHROSIS. NO ACUTE FINDINGS. Reading Location: [id number] Tibia/Fibula X-Ray 01/11/25 12:00 IMPRESSION: NEGATIVE TIBIA AND FIBULA Reading Location: [id number] Echocardiogram 01/11/25 14:57 Interpretation Summary The left ventricular ejection fraction is 35 %. Normal LV size. There is moderate global hypokinesis of the left ventricle. Ordering Physician: Vivek Valverde Performed By: Chest X-Ray 01/11/25 22:30 IMPRESSION: Endotracheal tube tip 4.8 cm above the edin. Enteric tube terminates appropriately within the stomach. Reading Location: [facility] Assessment and Plan . Assessment and plan: DRIPS Levophed Fentnayl D10 VENTILATOR AC/450/30/5/60% ASSESSMENT 1. Acute Hypoxemic Respiratory Failure 2. Cardiac Arrest 3. Shock 4. Acute on Chronic Systolic Heart Failure (EF 35%) 5. Non- ST Elevation Myocardial Infarction 6. Atrial Fibrillation with RVR 7. Profound Metabolic Acidosis with Elevated Lactate 8. Acute Hypoglycemia 9. Hyperkalemia 10. Hyponatremia 11. Acute on Chronic Kidney Disease 12. Acute on Chronic Anemia 13. Acute Thrombocytopenia 14. Coagulopathy with Elevated INR 15. Coronary Artery Disease s/p CABG 16. Hypertension 17. Hyperlipidemia 18. Type II Diabetes Mellitus 19. Prostate Cancer s/p XRT 20. DVT/PE on Coumadin PLAN 1. Vent check made; RR increased; ABG pending 2. Fluids + Vasopressor to maintain MAP 65 3. If repeat ABG with pH < 7.2 - start bicarb gtt at 150/hr 4. Continue D10 drip; check CBGs q1hr 5. Monitor K 6. Monitor Plt - send of DIC labs 7. Hold coumadin with supratherapeutic INR 8. Hold lasix 9. Trend troponin 10. Extensive discussion with family - he is now DNR/DNI; low threshold for comfort care Coumadin/PPI Critical Care Time: 60 Minutes The entirety of this encounter was done via telemedicine using both audio and video. Consent was unable to be obtained due to mental status Garrison Uriarte MD Pulmonary and Critical Care Medicine
--- NOTE | 2025-01-12 00:56 | PCM.HOSP.N ---
Hospitalist Note Given patient continued decline and requirements of at least 3 pressors, discussed CODE status at length including difference between FULL code, DNR-CCA and DNR-CC status. Following discussions about the differences in these status, requested initially DNR CCA with no reintubation and family discussed further consideration of comfort care which was outlined. Once family had discussed this among themselves they did notify staff and physician decision to transition to comfort care and terminally extubate patient. Will initiate comfort measures and extubation. Procedures Hospitalists Procedures: [id number] Advncd Care Plan 30 Min
--- NOTE | 2025-01-12 01:03 | NURSING ---
Family spoke with this RN about their wishes to terminally extubate.
--- NOTE | 2025-01-12 01:12 | CPS ---
Terminal extubation was requested by Pt's family.
[2025-01-12 01:36] LABS: Differential Comment SCANNED
--- NOTE | 2025-01-12 01:54 | PCM.HOSP.N ---
Hospitalist Note Date of : 01/12/25 Time of : 1319
[2025-01-12 02:40] LABS: Reflex Lactate? Y
--- NOTE | 2025-01-13 09:54 | EXP.PCM_ITS ---
Preliminary Cause of Preliminary Cause of Preliminary Cause of : Multisystem organ failure Date of Admission: 01/11/25 Date of : 01/12/25 Principle Diagnosis Problem List: Active and Suspected Problems (Updated 01/11/25 @ 20:[address] Vivek Valverde, DO) Acute HFrEF (heart failure with reduced ejection fraction) (Acute) Atrial fibrillation (Acute) Generalized weakness (Acute) Hospital Course Patient is an 84-year-old male who presented to [facility] ED on 01/11/2025 with worsening shortness of breath, leg swelling and weakness. Medical history was significant for prostate cancer s/p radiation therapy, CAD with CABG x 4, hypertension, hyperlipidemia, paroxysmal A-fib, DVT/PE on Coumadin and type 2 diabetes mellitus. He was living at home with his prior to this admission. His daughter lives nearby and noted on admission that the patient's health had downtrended significantly for about 2 weeks prior to admission. He had completed radiation therapy for prostate cancer in February 2024 and had fairly good functional status through the summer, but then for the past 2 to 4 weeks he had become less active and was noting worsening shortness of breath with exertion and swelling of his legs. In the ED he was found to be in A-fib with RVR to the 120s, was hypotensive to the 80s over 60s and was requiring 4 L nasal cannula at rest to maintain appropriate oxygen saturations. Presentation was consistent with acute heart failure exacerbation with volume overload. Echo shortly after admission showed newly reduced EF 35%, moderate global hypokinesis of the LV, moderately dilated RV, mild global RV systolic dysfunction and severely enlarged atria. No significant valvular disease was noted. Given his borderline hypotension, patient was admitted to the ICU. He was very hard of hearing but it was also noted that he seemed intermittently confused and delirious in the ED.
--- NOTE | 2025-01-13 09:54 | PCM.DEATH ---
Preliminary Cause of Preliminary Cause of Preliminary Cause of : Multisystem organ failure Date of Admission: 01/11/25 Date of : 01/12/25 Principle Diagnosis Problem List: Active and Suspected Problems (Updated 01/11/25 @ 20:[address] Vivek Valverde, DO) Acute HFrEF (heart failure with reduced ejection fraction) (Acute) Atrial fibrillation (Acute) Generalized weakness (Acute) Hospital Course Patient was an 84-year-old male who presented to [facility] ED on 01/11/2025 with worsening shortness of breath, leg swelling and weakness. Medical history was significant for prostate cancer s/p radiation therapy, CAD with CABG x 4, paroxysmal A-fib on Coumadin, history of DVT/PE, hypertension and hyperlipidemia. He was living at home with his prior to this admission but per his daughter who lives nearby, his functional status had significantly worsened for 2 to 3 weeks prior to this admission. He had progressively become short of breath and had worsening lower extremity swelling limiting his activity. In the ED he was found to be in A-fib with RVR with rates of 120s and hypotensive to the 80s over 60s. Was also hypoxic requiring 4 L nasal cannula and chest x-ray showed vascular congestion and bilateral pleural effusions. Presentation most consistent with an acute HFrEF exacerbation with volume overload. Echo showed newly reduced EF 35%, moderate global hypokinesis of the LV, moderately dilated RV and mild global RV systolic dysfunction, severely enlarged LA on RA, no significant valvular disease. Patient was admitted to the ICU and started on Lasix drip to expedite diuresis. Unfortunately on the evening of admission, CRIS QUESADA was called at 10:08 PM. Per nursing, patient had new onset bradycardia leading to asystole despite atropine. Nursing noted that his blood glucose was 16 on fingerstick check shortly before the code was called. ROSC was achieved with epi x 1 and dextrose amps x 2. He was intubated at that time as well. Unfortunately, postintubation labs showed a severe acidosis with lactate of 14 and bicarb 9.5. He continued to decline despite 3 pressors and a bicarbonate drip. Overnight hospitalist discussed with family extensively and they were agreeable to transitioning patient to comfort care. Patient was extubated and pressors were weaned and he passed shortly after this. Time of 0137. Discharge diagnoses: ? Multisystem organ failure ? New onset acute HFrEF ? Severe hypoglycemia ? ANTHONY ? Acute metabolic encephalopathy ? Pancytopenia ? Paroxysmal A-fib with RVR ? History of CAD with CABG/hypertension/hyperlipidemia ? History of VTE ? Kidney stones ? Type 2 diabetes mellitus ? Acute on chronic debility with significant hearing loss Total clinical time spent by myself addressing the patient's medical issues: 45 minutes. Visit Charges Inpatient E&M: 70524 Disch Hosp >30min
== END 2025-01-12 04:08 | DRG 291 ==
LOC: ED 15:02 → ICU 15:15
PROVIDERS: Family Medicine; Admitting Provider Hospitalist; Emergency Provider Emergency Medicine; PCP Family Medicine; Visit Provider Hospitalist
DX: I13.0 Hypertensive heart and chronic kidney disease with heart failure and stage 1 through stage 4 chronic kidney disease, or unspecified chronic kidney disease (principal); G93.41 Metabolic encephalopathy; J96.01 Acute respiratory failure with hypoxia; I50.23 Acute on chronic systolic (congestive) heart failure; D61.818 Other pancytopenia; E87.1 Hypo-osmolality and hyponatremia; I24.89 Other forms of acute ischemic heart disease; N17.9 Acute kidney failure, unspecified; E87.20 Acidosis, unspecified; J90 Pleural effusion, not elsewhere classified; D68.9 Coagulation defect, unspecified; N13.2 Hydronephrosis with renal and ureteral calculous obstruction; R57.0 Cardiogenic shock; Z51.5 Encounter for palliative care; E11.22 Type 2 diabetes mellitus with diabetic chronic kidney disease; D63.1 Anemia in chronic kidney disease; N18.9 Chronic kidney disease, unspecified; I48.0 Paroxysmal atrial fibrillation; E11.649 Type 2 diabetes mellitus with hypoglycemia without coma; I25.10 Atherosclerotic heart disease of native coronary artery without angina pectoris; E87.5 Hyperkalemia; E78.5 Hyperlipidemia, unspecified; R00.1 Bradycardia, unspecified; I46.9 Cardiac arrest, cause unspecified; Z79.899 Other long term (current) drug therapy; Z92.3 Personal history of irradiation; D69.6 Thrombocytopenia, unspecified; Z86.711 Personal history of pulmonary embolism; H91.90 Unspecified hearing loss, unspecified ear; Z79.84 Long term (current) use of oral hypoglycemic drugs; Z95.1 Presence of aortocoronary bypass graft; Z87.891 Personal history of nicotine dependence; Z79.01 Long term (current) use of anticoagulants; Z86.74 Personal history of sudden cardiac arrest; Z85.46 Personal history of malignant neoplasm of prostate
CPT/HCPCS: 31500; 36600; 71045; 71046; 73560; 73590; 73610; 74177; 80053; 81001; 82803; 82962; 83036; 83605; 83690; 83735; 83880; 84100; 84484; 85025; 85610; 85730; 92950; 93005; 93306; 94002; 99285; Q9967; A4216; J1938